=== PATIENT | male | born 1970 | race Caucasian/White ===

== ENCOUNTER 2021-04-09 09:15 | Emergency (ER) | payer BC, SELFPAY ==
[2021-04-09 09:44] VITALS: BP 116/66; PULSE 81; RESP 12; TEMP 36.4; O2SAT 98; BMI 35.5
--- NOTE | 2021-04-09 09:56 | HMH.EDUTC ---
[facility] [place] Clinical Impression: Viral syndrome Disposition: Home, Self-Care Condition on Discharge: Good Instructions: DI for Viral Syndrome Additional Instructions: Drink plenty of fluids. Take tylenol or ibuprofen for pain or fever. Take the medications as directed. Follow up with your regular doctor. GO TO THE ER FOR ANY WORSENING SYMPTOMS Quarantine until you know the results of your covid-19 test. If it is positive, the health department should call you and give you further instructions about your length of Quarantine and other thing. Prescriptions: Benzonatate [Tessalon Perle 100mg Cap] 100 mg PO TIDP PRN #30 cap PRN Reason: Cough Transmission Status: Received by [id number] Azithromycin [Z-Devaughn 250mg Tab*] 250 mg PO UD DOSE PK #6 tab Transmission Status: Received by [id number] Referrals: Shena Lorenz [Primary Care Provider] - Medical Decision Making - Medical Records Medical records reviewed: No: I reviewed the patient's medical records. - Shaquille Inquiry Pt receiving controlled substance: No Vital Signs: 04/09/21 09:44 04/09/21 10:18 Temperature 97.6 F 98 F Temperature Source Temporal Artery Scan Pulse Rate 79 Pulse Rate [Left] 81 Respiratory Rate 12 16 Blood Pressure 121/73 Blood Pressure [Right Arm] 116/66 Blood Pressure Mean [Right Arm] 82 02 Sat by Pulse Oximetry 98 - Lab Data Lab results reviewed: Yes: I reviewed the patient's lab results. Orders (Tests/Meds): ORDERS Category Date Time Status Covid-19 Nasal PCR ([facility]) Routine Lab 04/09/21 09:40 Stop Req Full Resp Panel w/COVID ([facility]) Routine Lab 04/09/21 09:40 Received [facility] HPI - General Stated complaint: covid exposure,symtoms Time Seen by Provider: 04/09/21 09:56 Mode of Arrival: Ambulatory Source of Information: Patient Limitations: No Limitations Description of Symptoms (Recalled from Triage Doc. by RN): pt c/o cough, body aches, DAVIDSON and dizziness. tested positive for covid yesterday. HEENT Symptoms (Recalled from RN notes): Yes (DAVIDSON and dizziness) Resp Symptoms (Recalled from RN notes): Yes (cough) Skin Symptoms (Recalled from RN notes): No MS Symptoms (Recalled from RN notes): No Functional Status (Recalled from RN notes): body aches - History of Present Illness Provider Complaint: He states that for the past 3 days he has had body aches, chilling, low grade fever, a dry cough and a scratchy sore throat. He has been vaccinated against covid (moderna vaccine, last dose around january 25). He denies shortness of breath and chest pain. - Related Data Previous Rx's Medication Instructions Recorded Azithromycin [Z-Devaughn 250mg Tab*] 250 mg PO UD DOSE PK #6 tab 04/09/21 Benzonatate [Tessalon Perle 100mg 100 mg PO TIDP PRN #30 cap 04/09/21 Cap] Allergies Allergy/AdvReac Type Severity Reaction Status Date / Time metformin Allergy Verified 04/09/21 09:46 - Worker's Comp Is this a Worker's Comp case?: No [facility] History - Hepatitis A Screen Drug use history?: No High risk sexual behaviors?: No History of sexually transmitted infection?: No Currently employed?: No Childcare worker?: No Do you have indoor plumbing?: Yes Do you have electricity?: Yes Attestation statement:: This patient has been screened for Hepatitis A risk factors. I have reviewed the patient's past medical history: Yes ROS Obtained: Yes All systems reviewed & no additional complaints - Constitutional Constitutional: Reports chills, Reports fever(s), Reports poor appetite, Reports malaise - Eyes Eyes: Denies eye discharge - ENT Ears, Nose, Mouth, and Throat: Denies dizziness, Denies otalgia, Reports sore throat, Denies vertigo/dizziness - Cardiovascular Cardiovascular: Denies chest pain - Respiratory Respiratory: Reports chest congestion, Reports cough, Denies dyspnea, Denies stridor, Denies wheezing - Gastrointestinal Gastrointestingal: Reports: nausea.
[2021-04-09 10:18] VITALS: BP 121/73; PULSE 79; RESP 16; TEMP 36.6
[2021-04-09 10:20] LABS: Adenovirus,PCR Not Detected (NotDetected); Coronavirus 229E Not Detected (NotDetected); Coronavirus NL63 Not Detected (NotDetected); Coronavirus OC43 Not Detected (NotDetected); Coronovirus HKU1,PCR Not Detected (NotDetected); Human Metapneumovirus Not Detected (NotDetected); Influenza A, PCR Not Detected (NotDetected); Influenza AH1, 2009 Not Detected (NotDetected); Influenza AH1, PCR Not Detected (NotDetected); Influenza AH3,PCR Not Detected (NotDetected); Influenza B, PCR Not Detected (NotDetected); Parainfluenza 1, PCR Not Detected (NotDetected); Parainfluenza 2, PCR Not Detected (NotDetected); Parainfluenza 3, PCR Not Detected (NotDetected); Parainfluenza 4, PCR Not Detected (NotDetected); Respiratory Syncytial Virus Not Detected (NotDetected); Rhinovirus/Enterovirus Not Detected (NotDetected)
[2021-04-09 10:21] LABS: Bordetella Pertussis Not Detected (NotDetected); Chlamydophila Pneumoniae, PCR Not Detected (NotDetected); Mycoplasma Pneumoniae, PCR Not Detected (NotDetected)
[2021-04-09 12:44] LABS: Coronavirus 19, PCR Detected (NotDetected)
== END 2021-04-09 10:20 | disposition home or self-care (01) ==
PROVIDERS: Emergency Provider Nurse Practitioner Family; PCP Family Medicine
DX: U07.1 COVID-19 (principal)
CPT/HCPCS: 87581; 87633; 87798; 99202; G0463; U0003

== ENCOUNTER 2022-04-25 21:04 | Emergency (ER) | payer OTHER, SELFPAY ==
[2022-04-25 21:06] VITALS: BP 145/59; PULSE 109; RESP 16; TEMP 36.9; O2SAT 100; BMI 34.9
[2022-04-25 21:26] VITALS: BP 145/69; PULSE 109; RESP 16; TEMP 36.7; O2SAT 97
--- NOTE | 2022-04-25 21:28 | CT_ITS ---
PROCEDURE INFORMATION: Exam: CT Abdomen And Pelvis Without Contrast Exam date and time: 04/25/2022 9:57 PM Age: 51 years old Clinical indication: Other: Urinary freq. ; Additional info: Urinary pain, frequency TECHNIQUE: Imaging protocol: Computed tomography of the abdomen and pelvis without contrast. Radiation optimization: All CT scans at this facility use at least one of these dose optimization techniques: automated exposure control; mA and/or kV adjustment per patient size (includes targeted exams where dose is matched to clinical indication); or iterative reconstruction. COMPARISON: No relevant prior studies available. FINDINGS: Liver: Parenchymal enhancement is not evaluated without contrast. No hepatomegaly. Gallbladder and bile ducts: No calcified stones. No ductal dilation. Pancreas: Parenchymal enhancement is not evaluated without contrast. No ductal dilation. Spleen: Parenchymal enhancement is not evaluated without contrast. No splenomegaly. Adrenal glands: No mass. Kidneys and ureters: Parenchymal enhancement is not evaluated without contrast. No hydronephrosis. Stomach and bowel: No obstruction. No mucosal thickening. Appendix: No evidence of appendicitis. Intraperitoneal space: No free air. No significant fluid collection. Vasculature: Calcified atherosclerosis. No aneurysm. Lymph nodes: No enlarged lymph nodes. Urinary bladder: Isidro catheter within the urinary bladder. Potential wall thickening of the urinary bladder which is decompressed and not well evaluated. Reproductive: No acute abnormality. Bones/joints: No acute fracture. Soft tissues: 3 cm fat containing right paramedian ventral hernia just below the diaphragm. IMPRESSION: Potential wall thickening of the urinary bladder which is decompressed and not well evaluated. Correlation with UA recommended. Mucosal mass cannot be radiographically excluded.
[2022-04-25 21:30] VITALS: BP 134/63; PULSE 107; RESP 16; O2SAT 97
--- NOTE | 2022-04-25 21:50 | PC.NURSE ---
IN WITH PATIENT, SOARES CATH PLACED PER DR. DIAZ.
[2022-04-25 21:54] LABS: Microscopic, Urine URINE MICROSCOPIC (MICROSCOPIC)
--- NOTE | 2022-04-25 21:58 | HMH.EDUROGM ---
Discharge Plan Disposition Patient Disposition: Home, Self-Care Prescriptions Prescriptions: New levofloxacin 500 mg tablet 500 mg PO DAILY Qty: 7 0RF phenazopyridine [Pyridium] 200 mg tablet 200 mg PO TID Qty: 6 0RF Referrals Follow up/Referrals: Shena Lorenz [Primary Care Provider] - See instructions Tereso Merino MD [Staff Physician] - See instructions Clinical Impressions Clinical Impression: Urinary tract infection Instructions Patient Instructions: DI for Urinary Tract Infection (UTI) Discharge ED Provider: Julio César Rizo Male Urogenital HPI General Chief complaint: Urogenital-Male Stated complaint: blood in urine Time Seen by Provider: 04/25/22 21:58 Mode of Arrival: Ambulatory Source of Information: Patient and Medical Record Limitations: No Limitations Description of Symptoms (Recalled from ER Triage Doc. by RN): PAIN, BURNING AND URINARY FREQUENCY THAT BEGAN TODAY AT 1530. PT ALSO REPORTS DIFFICULTY STARTING HIS FLOW. History of Present Illness HPI Narrative: painful urination with freq and blood which started today - no fever Complaint: dysuria Onset (ago): day(s) Duration: intermittent Severity: moderate Quality: burning Exacerbating factors: urination Reports blood in urine and dysuria Related Data Previous Rx's Medication Instructions Recorded levofloxacin 500 mg tablet 500 mg PO DAILY #7 tabs 04/26/22 phenazopyridine 200 mg tablet 200 mg PO TID 6 doses #6 tabs 04/26/22 (Pyridium) Allergies Allergy/AdvReac Type Severity Reaction Status Date / Time metformin Allergy Verified 04/09/21 09:46 PFSH PFSH Social History Smoking Status: Never smoker alcohol intake: never current occupational status: employed ROS Obtained: Yes All systems reviewed & no additional complaints except as documented Physical Exam General General appearance: alert and obese Head Head exam: normocephalic Eye Eye exam: Present PERRL and EOMI ENT ENT exam: Present mucous membranes moist Neck Neck exam: Present full ROM Respiratory Respiratory exam: Present normal lung sounds bilaterally Cardiovascular Cardiovascular exam: Present regular rate Abdominal Exam Abdominal exam: Present soft; Absent distention or tenderness Abdominal tenderness: Present suprapubic and moderate exam: Present circumcised; Absent urethral discharge or scrotal swelling Extremities Exam Extremities exam: Present full ROM Back Exam Back exam: Absent CVA tenderness (R) or CVA tenderness (L) Neurological Exam Neurological exam: Present alert, oriented X3 and CN II-XII intact Skin Skin exam: Absent rash Medical Decision Making Medical Records Medical records reviewed: Yes I reviewed the patient's medical records. Shaquille Inquiry Pt receiving controlled substance: No Vital Signs: 04/25/22 21:06 04/25/22 23:39 04/25/22 21:26 Temperature 98.5 F 98.7 F 98.1 F Temperature Source Oral Oral Pulse Rate 96 H 109 H Pulse Rate [Left Radial] 109 H Respiratory Rate 16 16 16 Blood Pressure 112/51 L 145/69 H Blood Pressure [Right Arm] 145/59 H Blood Pressure Mean 84 Blood Pressure Mean [Right Arm] 87 Blood Pressure Source Automatic Cuff Blood Pressure Source [Right Arm] Automatic Cuff Blood Pressure Position Supine 02 Sat by Pulse Oximetry 100 99 97 Oxygen Delivery Method Room Air Room Air 04/25/22 21:30 04/25/22 23:37 04/26/22 00:00 Temperature 98.1 F Temperature Source Pulse Rate 107 H 102 H 98 H Pulse Rate [Left Radial] Respiratory Rate 16 16 16 Blood Pressure 134/63 112/51 L 129/68 Blood Pressure [Right Arm] Blood Pressure Mean 86 73 80 Blood Pressure Mean [Right Arm] Blood Pressure Source Blood Pressure Source [Right Arm] Blood Pressure Position 02 Sat by Pulse Oximetry 97 97 97 Oxygen Delivery Method 04/26/22 00:30 04/26/22 01:07 04/26/22 01:07 Temperature 98.9 F Temperature Source Pulse Rate 92 H 86 Pulse Rate
[2022-04-25 22:16] LABS: Chloride 104 mmol/L (98-107); Potassium 3.9 mmoL/L (3.5-5.1); Sodium 138 mmol/L (136-145)
[2022-04-25 22:18] LABS: Blood Urea Nitrogen 10 mg/dl (9-20); Creatinine Clearance Estimated 207 mL/min (50-200); Estimated Glomerular Filt Rate 118 ml/min (>60); GFR (African American) 143 ML/MIN (>60)
[2022-04-25 22:19] LABS: Alanine Aminotransferase 26 U/L (12-78); Albumin Level 3.9 g/dl (3.5-5.0); Albumin/Globulin Ratio 1.3 (1.1-1.8); Alkaline Phosphatase 192 U/L (38-126); Anion Gap 8.9 mEq/L (5-15); Aspartate Amino Transferase 32 U/L (17-59); Calcium 9.4 mg/dl (8.4-10.2); Carbon Dioxide 29 mmol/L (22.0-30.0); Globulin 3.1 g/dL (1.3-3.2); Glucose 199 mg/dl (74-100)
[2022-04-25 22:20] LABS: Lactic Acid 1.9 mmol/L (0.7-2.1)
[2022-04-25 22:23] LABS: Bilirubin,Total < 0.1 mg/dl (0.2-1.3)
[2022-04-25 22:24] LABS: C-Reactive Protein 8.2 mg/L (0-4)
[2022-04-25 22:34] LABS: Appearance,Urine CLOUDY (Clear); Bilirubin,Urine Negative (Negative); Blood, Urine 3+ (Negative); Color,Urine BROWN (Yellow); Glucose,Urine (UA) 1+ (Negative); Ketones,Urine Negative (Negative); Leukocyte Esterase,Urine 1+ (Negative); Nitrate,Urine POSITIVE (Negative); Protein,Urine 3+ (Negative); Specific Gravity, Urine >= 1.030 (1.005-1.030)
[2022-04-25 22:44] LABS: Procalcitonin 0.108 ng/mL (0.0-2.0)
[2022-04-25 22:49] LABS: Basophils # 0.1 K/mm3 (0-0.2); Basophils % 0.5 % (0.1-2.0); Eosinophils # 0.1 K/mm3 (0.0-0.4); Eosinophils % 0.7 % (0.1-12.0); Hematocrit 43.7 % (42.0-52.0); Hemoglobin 14.2 g/dL (14.1-18.0); Lymphocytes # 1.8 K/mm3 (0.7-4.5); Lymphocytes % 15.3 % (10-50); Mean Corpuscular HGB Conc 32.4 g/dL (31.8-35.4); Mean Corpuscular Hemoglobin 30.2 pg (27.0-31.2); Mean Platelet Volume 7.8 fl (7.4-10.4); Monocytes # 0.7 K/mm3 (0.1-1.0); Monocytes % 5.9 % (1.7-9.3); Neutrophils # 8.9 K/mm3 (1.8-7.8); Neutrophils % 77.5 % (37.0-80.0); Platelet Count 310 K/mm3 (142-424); Red Cell Distribution Width 13.6 % (11.5-17.5); White Blood Count 11.5 K/mm3 (4.8-10.8)
[2022-04-25 22:50] LABS: Bacteria,Urine 1+ /lpf; RBC,Urine TNTC #/hpf (0-3); Squamous Epithelial Cell,Urine Occasional #/hpf (0-5)
[2022-04-25 22:58] LABS: Erythrocyte Sedimentation Rate 27 mm/hr (0-20)
[2022-04-25 23:37] VITALS: BP 112/51; PULSE 102; RESP 16; TEMP 36.7; O2SAT 97
[2022-04-25 23:39] VITALS: BP 112/51; PULSE 96; RESP 16; TEMP 37.1; O2SAT 99
--- NOTE | 2022-04-25 23:45 | PC.NURSE ---
ALERT, ORIENTED SKIN WARM AND DRY TO TOUCH, RESP EVEN AND UNLABORED, PATIENT REPORTS URINARY URGENCY IMPROVING. SOARES CATH TO DRAIN WITH SMALL AMOUNT OF YELLOW URINE WITH SMALL BLOOD CLOTS PRESENT.
[2022-04-26] VITALS: BP 129/68; PULSE 98; RESP 16; O2SAT 97
[2022-04-26 00:30] VITALS: BP 125/69; PULSE 92; O2SAT 96
--- NOTE | 2022-04-26 00:45 | PC.NURSE ---
PT ABX COMPLETE- PT AWARE OF WAITING ON DISCHARGE. NO COMPLAINTS VOICED.
--- NOTE | 2022-04-26 01:00 | PC.NURSE ---
F/C REMOVED 300 ML OF URINE OUTPUT. IV D/C
[2022-04-26 01:07] VITALS: BP 144/78; PULSE 86; RESP 16; TEMP 37.2; O2SAT 97
== END 2022-04-26 01:27 | disposition home or self-care (01) ==
PROVIDERS: Emergency Provider Emergency Medicine; PCP Family Medicine
DX: N39.0 Urinary tract infection, site not specified (principal); Z88.8 Allergy status to other drugs, medicaments and biological substances
CPT/HCPCS: 51702; 74176; 80053; 81001; 83605; 84145; 85025; 85651; 86140; 87040; 87086; 87088; 87186; 96365; 96367; 96375; 99284; J0696

== ENCOUNTER → 2022-05-11 14:00 | Outpatient (CLI) | payer OTHER, SELFPAY ==
[2022-05-11 18:19] LABS: Alanine Aminotransferase 21 U/L (12-78); Albumin Level 3.5 g/dl (3.5-5.0); Albumin/Globulin Ratio 1.2 (1.1-1.8); Alkaline Phosphatase 168 U/L (38-126); Anion Gap 13.1 mEq/L (5-15); Aspartate Amino Transferase 23 U/L (17-59); Blood Urea Nitrogen 12 mg/dl (9-20); Calcium 9.1 mg/dl (8.4-10.2); Carbon Dioxide 28 mmol/L (22.0-30.0); Chloride 101 mmol/L (98-107); Cholesterol 149 mg/dl (140-200); Estimated Glomerular Filt Rate 141 ml/min (>60); GFR (African American) 171 ML/MIN (>60); Globulin 2.9 g/dL (1.3-3.2); Glucose 141 mg/dl (74-100); HDL Cholesterol 50 mg/dl (40-60); Potassium 4.1 mmoL/L (3.5-5.1); Sodium 138 mmol/L (136-145); Total Protein,Serum 6.4 g/dl (6.3-8.2); Triglycerides 116 mg/dl (30-150); VLDL Cholesterol 23 mg/dL (0-40)
[2022-05-11 18:21] LABS: Bilirubin,Total < 0.1 mg/dl (0.2-1.3)
[2022-05-11 18:25] LABS: Hemoglobin A1C 6.7 % (4.0-6.0)
[2022-05-11 18:30] LABS: Direct LDL Cholesterol 77.94 mg/dL (100-129)
[2022-05-11 18:35] LABS: 25-OH Vitamin D, Total 20.1 ng/mL (30-100)
[2022-05-11 18:41] LABS: Basophils # 0.1 K/mm3 (0-0.2); Basophils % 1.1 % (0.1-2.0); Eosinophils # 0.1 K/mm3 (0.0-0.4); Eosinophils % 1.1 % (0.1-12.0); Hematocrit 43.8 % (42.0-52.0); Hemoglobin 14.5 g/dL (14.1-18.0); Lymphocytes # 2.5 K/mm3 (0.7-4.5); Mean Corpuscular HGB Conc 33.2 g/dL (31.8-35.4); Mean Corpuscular Volume 93.4 fl (80-94); Mean Platelet Volume 8.3 fl (7.4-10.4); Monocytes # 0.5 K/mm3 (0.1-1.0); Monocytes % 5.8 % (1.7-9.3); Neutrophils # 4.8 K/mm3 (1.8-7.8); Neutrophils % 60.9 % (37.0-80.0); Platelet Count 383 K/mm3 (142-424); Red Blood Count 4.68 M/mm3 (4.60-6.20); Red Cell Distribution Width 13.7 % (11.5-17.5); White Blood Count 7.9 K/mm3 (4.8-10.8)
[2022-05-11 18:50] LABS: Prostate Specific Ag Screen 3.3 ng/ml (0.0-4.0); Thyroid Stimulating Hormone 1.27 uIU/mL (0.465-4.68)
== END ==
PROVIDERS: PCP Physician Assistant; Visit Provider Physician Assistant
DX: E11.9 Type 2 diabetes mellitus without complications (principal); E78.5 Hyperlipidemia, unspecified; I10 Essential (primary) hypertension; R31.9 Hematuria, unspecified; E55.9 Vitamin D deficiency, unspecified; Z12.5 Encounter for screening for malignant neoplasm of prostate; Z79.4 Long term (current) use of insulin
CPT/HCPCS: 80053; 80061; 82306; 83036; 84443; 85025; G0103

== ENCOUNTER → 2022-05-12 14:14 | Outpatient (CLI) | payer OTHER, SELFPAY ==
[2022-05-12 10:41] LABS: Intact Parathyroid Hormone 56.2 pg/mL (7.5-53.5)
== END ==
PROVIDERS: PCP Physician Assistant; Visit Provider Physician Assistant
DX: R74.8 Abnormal levels of other serum enzymes (principal)
CPT/HCPCS: 83970

== ENCOUNTER 2022-06-07 08:19 | Emergency (ER) | payer OTHER, SELFPAY ==
[2022-06-07 08:25] VITALS: BP 131/67; PULSE 80; RESP 22; TEMP 36.4; O2SAT 98; BMI 33.0
[2022-06-07 08:39] VITALS: BP 131/67; PULSE 80; RESP 22; TEMP 36.4; O2SAT 98
--- NOTE | 2022-06-07 08:46 | EXP.UTC ---
Discharge Plan Disposition Patient Disposition: Home, Self-Care Condition: Good Prescriptions Prescriptions: New nystatin 100,000 unit/gram cream 1 applic topical BID 14 Days Qty: 30 1RF fluconazole [Diflucan] 150 mg tablet 150 mg PO ONCE Qty: 1 2RF No Action lisinopril 10 mg tablet 10 mg PO DAILY ezetimibe [Zetia] 10 mg tablet 10 mg PO DAILY pantoprazole 40 mg tablet,delayed release (DR/EC) 40 mg PO DAILY pioglitazone [Actos] 45 mg tablet 45 mg PO DAILY clopidogrel [Plavix] 75 mg tablet 75 mg PO DAILY isosorbide mononitrate 30 mg tablet extended release 24 hr 30 mg PO DAILY Ozempic 1 mg/dose (4 mg/3 mL) pen injector 1 mg SQ WEEKLY sertraline 100 mg tablet 100 mg PO DAILY (DME) FreeStyle Lite Strips Strip See Rx Instructions .ROUTE Rx Instructions: As directed ergocalciferol (vitamin D2) 1,250 mcg (50,000 unit) capsule 1,250 mcg PO WEEKLY Tresiba U-100 Insulin 100 unit/mL solution 20 unit SQ HS cholecalciferol (vitamin D3) 1,250 mcg (50,000 unit) capsule 1,250 mcg PO WEEKLY Qty: 14 3RF Referrals Follow up/Referrals: Jana Tidwell PA [Primary Care Provider] - See instructions Activity Restrictions/Add. Instructions Additional Instructions/Restrictions: Drink plenty of fluids. Take tylenol or ibuprofen for pain or fever. Take the medications as directed. Follow up with your regular doctor. GO TO THE ER FOR ANY WORSENING SYMPTOMS Make sure you dry well after bathing and showering. Pat the affected area under your arm dry with a towel Clinical Impressions Clinical Impression: Candidal skin infection Instructions Patient Instructions: Yeast Infection-Skin Discharge ED Provider: Rudy Curran [facility] General Stated complaint: Rash under LT arm Mode of Arrival: Ambulatory Source of Information: Patient Limitations: No Limitations Time Seen by Provider: 06/07/22 08:50 Description of Symptoms (Recalled from Triage Doc. by RN): PATIENT C/O RASH TO LEFT AXILLA X 1 WEEK HEENT Symptoms (Recalled from RN notes): No Resp Symptoms (Recalled from RN notes): No Skin Symptoms (Recalled from RN notes): Yes MS Symptoms (Recalled from RN notes): No Functional Status (Recalled from RN notes): WNL History of Present Illness Provider Complaint: He states that he has had a rash on his left axilla for the past 2 weeks approx. He denies any rash elsewhere. He has been putting neosporin on it with no improvement. He is a diabetic. Related Data Home Medications Medication Instructions Recorded Confirmed blood sugar diagnostic (FreeStyle 05/11/22 05/11/22 Lite Strips) clopidogrel 75 mg tablet (Plavix) 75 mg PO DAILY 05/11/22 05/11/22 ergocalciferol (vitamin D2) 1,250 1,250 mcg PO WEEKLY 05/11/22 05/11/22 mcg (50,000 unit) capsule ezetimibe 10 mg tablet (Zetia) 10 mg PO DAILY 05/11/22 05/11/22 insulin degludec 100 unit/mL 20 unit SQ HS 05/11/22 05/11/22 subcutaneous solution (Tresiba U-100 Insulin) isosorbide mononitrate 30 mg 30 mg PO DAILY 05/11/22 05/11/22 tablet,extended release 24 hr lisinopril 10 mg tablet 10 mg PO DAILY 05/11/22 05/11/22 pantoprazole 40 mg tablet,delayed 40 mg PO DAILY 05/11/22 05/11/22 release pioglitazone 45 mg tablet (Actos) 45 mg PO DAILY 05/11/22 05/11/22 semaglutide 1 mg/dose (4 mg/3 mL) 1 mg SQ WEEKLY 05/11/22 05/11/22 subcutaneous pen injector (Ozempic) sertraline 100 mg tablet 100 mg PO DAILY 05/11/22 05/11/22 Previous Rx's Medication Instructions Recorded cholecalciferol (vitamin D3) 1,250 1,250 mcg PO WEEKLY #14 caps 05/12/22 mcg (50,000 unit) capsule fluconazole 150 mg tablet 150 mg PO ONCE #1 tab 06/07/22 (Diflucan) nystatin 100,000 unit/gram topical 1 applic topical BID 14 days #30 06/07/22 cream grams Allergies Allergy/AdvReac Type Severity Reaction Status Date / Time metformin Allergy Verified 05/11/22 13:32 Wo
== END 2022-06-07 08:56 | disposition home or self-care (01) ==
PROVIDERS: Emergency Provider Nurse Practitioner Family; PCP Physician Assistant
DX: L08.9 Local infection of the skin and subcutaneous tissue, unspecified (principal); B37.2 Candidiasis of skin and nail; I10 Essential (primary) hypertension; I25.10 Atherosclerotic heart disease of native coronary artery without angina pectoris; E78.5 Hyperlipidemia, unspecified; E11.9 Type 2 diabetes mellitus without complications; F41.9 Anxiety disorder, unspecified; Z79.02 Long term (current) use of antithrombotics/antiplatelets; Z79.4 Long term (current) use of insulin; Z79.51 Long term (current) use of inhaled steroids; Z79.84 Long term (current) use of oral hypoglycemic drugs; Z79.899 Other long term (current) drug therapy
CPT/HCPCS: 99213; G0463

== ENCOUNTER 2023-03-28 13:38 | Emergency (ER) | payer OTHER, SELFPAY ==
--- NOTE | 2023-03-28 13:52 | EXP.UTC ---
Discharge Plan Disposition Patient Disposition: Home, Self-Care Condition: Good Prescriptions Prescriptions: New ondansetron 4 mg Tablet,Disintegrating 4 mg PO Q8H PRN (Reason: Nausea) Qty: 12 0RF No Action clopidogrel [Plavix] 75 mg tablet 75 mg PO DAILY (DME) FreeStyle Lite Strips Strip See Rx Instructions .Route Rx Instructions: As directed metoprolol succinate 50 mg tablet extended release 24 hr 50 mg PO Patient Comments: TAKE 1 TABLET BY MOUTH ONCE DAILY lisinopril 5 mg tablet 5 mg PO Patient Comments: TAKE 1 TABLET BY MOUTH ONCE DAILY ranolazine 500 mg tablet extended release 12 hr 1,000 mg PO BID pioglitazone 30 mg tablet 30 mg PO Patient Comments: TAKE 1 TABLET BY MOUTH ONCE DAILY Ozempic 2 mg/dose (8 mg/3 mL) pen injector 2 mg SQ WEEKLY atorvastatin 80 mg tablet 80 mg PO Patient Comments: TAKE 1 TABLET BY MOUTH ONCE DAILY insulin glargine [Lantus Solostar U-100 Insulin] 100 unit/mL (3 mL) insulin pen 50 unit SQ DAILY Repatha SureClick 140 mg/mL pen injector 140 mg SQ Q2W Patient Comments: INJECT 1 PEN INJECTOR ONCE EVERY 14 DAYS SUBCUTANEOUSLY insulin lispro 100 unit/mL insulin pen 1 sliding scale dose SQ TID Patient Comments: USE DIRECTED UP TO 30 UNITS DAILY IN DIVIDED DOSES DIRECTED aspirin 81 mg tablet,delayed release (DR/EC) 81 mg PO Patient Comments: TAKE 1 TABLET BY MOUTH ONCE DAILY oxybutynin chloride 10 mg tablet extended release 24hr 10 mg PO nitroglycerin 0.4 mg tablet, sublingual 0.4 mg sublingual PRN sertraline 100 mg tablet 100 mg PO DAILY Qty: 90 1RF cholecalciferol (vitamin D3) 1,250 mcg (50,000 unit) capsule 1,250 mcg PO WEEKLY Qty: 14 3RF Referrals Follow up/Referrals: Jana Tidwell PA [Primary Care Provider] - See instructions Activity Restrictions/Add. Instructions Additional Instructions/Restrictions: Drink plenty of fluids. Take tylenol for pain or fever. Take the medications as directed. Follow up with your regular doctor. GO TO THE ER FOR ANY WORSENING SYMPTOMS Clinical Impressions Clinical Impression: Gastroenteritis Instructions Patient Instructions: DI for Viral Gastroenteritis -- Adult, Ondansetron Discharge ED Provider: Rudy Curran [facility] HPI General Stated complaint: vomiting, body aches Time Seen by Provider: 03/28/23 13:52 History of Present Illness Provider Complaint: He states that for the past 2 days he has had n/v/d. He denies any abdominal pain. He states that he has not vomited since yesterday, but he has continued to have diarrhea. Related Data Home Medications Medication Instructions Recorded Confirmed blood sugar diagnostic (FreeStyle 05/11/22 03/20/23 Lite Strips) clopidogrel 75 mg tablet (Plavix) 75 mg PO DAILY 05/11/22 03/20/23 aspirin 81 mg tablet,delayed 81 mg PO 02/19/23 03/20/23 release atorvastatin 80 mg tablet 80 mg PO 02/19/23 03/20/23 evolocumab 140 mg/mL subcutaneous 140 mg SQ Q2W 02/19/23 03/20/23 pen injector (Repatha SureClick) insulin glargine 100 unit/mL (3 50 unit SQ DAILY 02/19/23 03/20/23 mL) subcutaneous pen (Lantus Solostar U-100 Insulin) insulin lispro 100 unit/mL 1 sliding scale dose SQ TID 02/19/23 03/20/23 subcutaneous pen lisinopril 5 mg tablet 5 mg PO 02/19/23 03/20/23 metoprolol succinate 50 mg 50 mg PO 02/19/23 03/20/23 tablet,extended release 24 hr nitroglycerin 0.4 mg sublingual 0.4 mg sublingual PRN 02/19/23 03/20/23 tablet oxybutynin chloride 10 mg 10 mg PO 02/19/23 03/20/23 tablet,extended release 24 hr pioglitazone 30 mg tablet 30 mg PO 02/19/23 03/20/23 ranolazine 500 mg tablet,extended 1,000 mg PO BID 02/19/23 03/20/23 release,12 hr semaglutide 2 mg/dose (8 mg/3 mL) 2 mg SQ WEEKLY 02/19/23 03/20/23 subcutaneous pen injector (Ozempic) Previous Rx's Medication Instruc
[2023-03-28 13:56] VITALS: BP 127/65; PULSE 91; RESP 18; TEMP 36.8; O2SAT 98; BMI 38.2
[2023-03-28 14:38] VITALS: BP 127/65; PULSE 91; RESP 18; TEMP 36.8
== END 2023-03-28 14:39 | disposition home or self-care (01) ==
PROVIDERS: Emergency Provider Nurse Practitioner Family; PCP Physician Assistant
DX: K52.9 Noninfective gastroenteritis and colitis, unspecified (principal); R11.2 Nausea with vomiting, unspecified; E11.9 Type 2 diabetes mellitus without complications; E78.5 Hyperlipidemia, unspecified; I10 Essential (primary) hypertension; F41.9 Anxiety disorder, unspecified; F32.A Depression, unspecified; Z79.4 Long term (current) use of insulin
CPT/HCPCS: 99212; 99214; G0463

== ENCOUNTER → 2023-06-13 16:14 | Outpatient (CLI) | payer OTHER, SELFPAY ==
[2023-06-13 18:34] LABS: 25-OH Vitamin D, Total 26.9 ng/mL (30-100)
[2023-06-13 19:00] LABS: Alanine Aminotransferase 23 U/L (12-78); Albumin Level 3.8 g/dl (3.5-5.0); Albumin/Globulin Ratio 1.4 (1.1-1.8); Alkaline Phosphatase 150 U/L (38-126); Anion Gap 14.1 mEq/L (5-15); Aspartate Amino Transferase 25 U/L (17-59); Bilirubin,Total 0.3 mg/dl (0.2-1.3); Blood Urea Nitrogen 14 mg/dl (9-20); Calcium 9.4 mg/dl (8.4-10.2); Carbon Dioxide 27 mmol/L (22.0-30.0); Chloride 103 mmol/L (98-107); Chol/HDL Ratio 1.4 (1-3.5); Cholesterol 83 mg/dl (140-200); Estimated Glomerular Filt Rate 101 ml/min (>60); GFR (African American) 122 ML/MIN (>60); Globulin 2.7 g/dL (1.3-3.2); Glucose 85 mg/dl (74-100); HDL Cholesterol 58 mg/dl (40-60); Potassium 4.1 mmoL/L (3.5-5.1); Sodium 140 mmol/L (136-145); Total Protein,Serum 6.5 g/dl (6.3-8.2); Triglycerides 49 mg/dl (30-150); VLDL Cholesterol 10 mg/dL (0-40)
[2023-06-13 19:36] LABS: Hemoglobin A1C 6.4 % (4.0-6.0)
[2023-06-13 19:37] LABS: Direct LDL Cholesterol < 30.00 mg/dL (100-129)
== END ==
PROVIDERS: PCP Physician Assistant
DX: E11.59 Type 2 diabetes mellitus with other circulatory complications (principal); E11.65 Type 2 diabetes mellitus with hyperglycemia; E11.69 Type 2 diabetes mellitus with other specified complication; I15.2 Hypertension secondary to endocrine disorders; I25.10 Atherosclerotic heart disease of native coronary artery without angina pectoris; E55.9 Vitamin D deficiency, unspecified; E78.5 Hyperlipidemia, unspecified; E66.01 Morbid (severe) obesity due to excess calories; Z68.37 Body mass index [BMI] 37.0-37.9, adult; Z79.4 Long term (current) use of insulin
CPT/HCPCS: 36415; 80053; 80061; 82306; 83036

== ENCOUNTER 2023-06-27 11:40 | Emergency (ER) | payer OTHER, SELFPAY ==
[2023-06-27 12:05] VITALS: BP 116/68; PULSE 71; RESP 17; TEMP 36.6; O2SAT 98; BMI 38.1
--- NOTE | 2023-06-27 12:18 | EXP.UTC ---
Discharge Plan Disposition Patient Disposition: Home, Self-Care Condition: Good Prescriptions Prescriptions: New benzonatate 100 mg capsule 100 mg PO TID PRN (Reason: cough) Qty: 30 0RF amoxicillin-pot clavulanate 875-125 mg Tablet 1 tab PO Q12H Qty: 20 0RF No Action clopidogrel [Plavix] 75 mg tablet 75 mg PO DAILY (DME) FreeStyle Lite Strips Strip See Rx Instructions .Route Rx Instructions: As directed metoprolol succinate 50 mg tablet extended release 24 hr 50 mg PO Patient Comments: TAKE 1 TABLET BY MOUTH ONCE DAILY lisinopril 5 mg tablet 5 mg PO Patient Comments: TAKE 1 TABLET BY MOUTH ONCE DAILY ranolazine 500 mg tablet extended release 12 hr 1,000 mg PO BID pioglitazone 30 mg tablet 30 mg PO Patient Comments: TAKE 1 TABLET BY MOUTH ONCE DAILY Ozempic 2 mg/dose (8 mg/3 mL) pen injector 2 mg SQ WEEKLY atorvastatin 80 mg tablet 80 mg PO Patient Comments: TAKE 1 TABLET BY MOUTH ONCE DAILY insulin glargine [Lantus Solostar U-100 Insulin] 100 unit/mL (3 mL) insulin pen 50 unit SQ DAILY Repatha SureClick 140 mg/mL pen injector 140 mg SQ Q2W Patient Comments: INJECT 1 PEN INJECTOR ONCE EVERY 14 DAYS SUBCUTANEOUSLY insulin lispro 100 unit/mL insulin pen 1 sliding scale dose SQ TID Patient Comments: USE DIRECTED UP TO 30 UNITS DAILY IN DIVIDED DOSES DIRECTED aspirin 81 mg tablet,delayed release (DR/EC) 81 mg PO Patient Comments: TAKE 1 TABLET BY MOUTH ONCE DAILY oxybutynin chloride 10 mg tablet extended release 24hr 10 mg PO nitroglycerin 0.4 mg tablet, sublingual 0.4 mg sublingual PRN sertraline 100 mg tablet 100 mg PO DAILY Qty: 90 1RF cholecalciferol (vitamin D3) 1,250 mcg (50,000 unit) capsule 1,250 mcg PO WEEKLY Qty: 14 3RF ondansetron 4 mg Tablet,Disintegrating 4 mg PO Q8H PRN (Reason: Nausea) Qty: 12 0RF Referrals Follow up/Referrals: Jana Tidwell PA [Primary Care Provider] - See instructions Activity Restrictions/Add. Instructions Additional Instructions/Restrictions: *Monitor Temp, Over the counter Motrin or Tylenol as directed/as needed Tylenol every 4 hours and Motrin every 6 hours (as long as your family doctor has told you that you can take it) for fever or pain. and straight to ER if unable to lower temp less than 101.0 after medication given *Warm salt water gargles may help to soothe the throat *Throat Lozenges? *Warm fluids like tea with honey may help to soothe the throat? *Sleep elevated *Humidifier/Vaporizer Your throat swab was sent for culture. Those results are typically sent to your primary care. Be sure to follow up in 2-3 days with your family doctor/primary care physician if no improvement so they can review those result and treat if necessary. If you don?t have a primary care doctor, I recommend you get one but in the mean time, you will have to return to a walk in clinic Follow up IMMEDIATELY for new or worsening symptoms or no Noticeable improvement over the next 48-72 hours. 911 for difficulty breathing or swallowing Clinical Impressions Clinical Impression: Sinusitis Qualifiers: Sinusitis location: unspecified location Chronicity: unspecified Qualified Code(s): J32.9 - Chronic sinusitis, unspecified Instructions Patient Instructions: DI for Sinusitis, Sinusitis, Middle Ear Infection Discharge ED Provider: Belia Rausch [facility] General Stated complaint: cough, congestion, weakness, lossof taste and smel Mode of Arrival: Ambulatory Source of Information: Patient Limitations: No Limitations Time Seen by Provider: 06/27/23 12:18 Description of Symptoms (Recalled from Triage Doc. by RN): PATIENT C/O BODY ACHES, EAR PAIN AND SORE THROAT X 3 DAYS HEENT Symptoms (Recalled from RN notes): Yes Resp Symptoms (Recalled from RN notes): No Ski
[2023-06-27 12:40] LABS: UTC Strep Screen (Rapid) Negative (Negative)
[2023-06-27 12:41] LABS: UTC Influenza A Antigen Negative (Negative); UTC Influenza B Antigen Negative (Negative)
[2023-06-27 12:45] VITALS: BP 116/68; PULSE 71; RESP 17; TEMP 36.6; O2SAT 98
== END 2023-06-27 12:50 | disposition home or self-care (01) ==
PROVIDERS: Emergency Provider Nurse Practitioner; PCP Physician Assistant
DX: J01.90 Acute sinusitis, unspecified (principal); H66.92 Otitis media, unspecified, left ear; R43.9 Unspecified disturbances of smell and taste; E11.9 Type 2 diabetes mellitus without complications; I10 Essential (primary) hypertension; E78.5 Hyperlipidemia, unspecified; I48.0 Paroxysmal atrial fibrillation; Z79.01 Long term (current) use of anticoagulants; Z79.4 Long term (current) use of insulin
CPT/HCPCS: 87635; 87804; 87880; 99212; 99214; G0463

== ENCOUNTER 2023-07-24 15:15 | Emergency (ER) | payer OTHER, SELFPAY ==
[2023-07-24 15:55] VITALS: BP 145/71; PULSE 85; RESP 18; TEMP 36.5; O2SAT 97; BMI 38.0
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
[2023-07-24 16:35] VITALS: BP 145/71; PULSE 85; RESP 18; TEMP 36.5; O2SAT 97
== END 2023-07-24 16:35 | disposition home or self-care (01) ==
LOC: UTC 15:20 → ER 15:26
PROVIDERS: Emergency Provider Emergency Medicine; PCP Physician Assistant
DX: T21.22XA Burn of second degree of abdominal wall, initial encounter (principal); T21.12XA Burn of first degree of abdominal wall, initial encounter; I48.0 Paroxysmal atrial fibrillation; E11.9 Type 2 diabetes mellitus without complications; I10 Essential (primary) hypertension; E78.5 Hyperlipidemia, unspecified; Z79.4 Long term (current) use of insulin; Z79.84 Long term (current) use of oral hypoglycemic drugs; Z79.85 Long-term (current) use of injectable non-insulin antidiabetic drugs; X13.1XXA Other contact with steam and other hot vapors, initial encounter; Z23 Encounter for immunization
CPT/HCPCS: 90471; 90715; 99283

== ENCOUNTER 2024-02-16 09:43 | Emergency (ER) | payer MEDICARE, SELFPAY ==
[2024-02-16 09:45] VITALS: BP 137/61; PULSE 90; RESP 18; TEMP 36.6; O2SAT 99; BMI 37.1
--- NOTE | 2024-02-16 10:15 | EXP.UTC ---
Discharge Plan Disposition Patient Disposition: Home, Self-Care Condition: Good Prescriptions Prescriptions: New clotrimazole 1 % cream 1 applic topical BID 14 Days Qty: 30 0RF No Action clopidogrel [Plavix] 75 mg tablet 75 mg PO DAILY (DME) FreeStyle Lite Strips Strip See Rx Instructions .Route Rx Instructions: As directed ezetimibe 10 mg tablet PO (DME) lancets [FreeStyle Lancets] 28 gauge misc See Rx Instructions .ROUTE .MEDSUPPLY Qty: 100 Patient Comments: USE TO TEST BLOOD SUGAR 3 TIMES DAILY Rx Instructions: As directed (DME) blood-glucose meter [FreeStyle Lite Meter] Kit See Rx Instructions .ROUTE .MEDSUPPLY Qty: 1 Rx Instructions: As directed metoprolol succinate 50 mg tablet extended release 24 hr 50 mg PO Patient Comments: TAKE 1 TABLET BY MOUTH ONCE DAILY lisinopril 5 mg tablet 5 mg PO Patient Comments: TAKE 1 TABLET BY MOUTH ONCE DAILY pioglitazone 30 mg tablet 30 mg PO Patient Comments: TAKE 1 TABLET BY MOUTH ONCE DAILY Ozempic 2 mg/dose (8 mg/3 mL) pen injector 2 mg SQ WEEKLY atorvastatin 80 mg tablet 80 mg PO Patient Comments: TAKE 1 TABLET BY MOUTH ONCE DAILY insulin glargine [Lantus Solostar U-100 Insulin] 100 unit/mL (3 mL) insulin pen 50 unit SQ DAILY Repatha SureClick 140 mg/mL pen injector 140 mg SQ Q2W Patient Comments: INJECT 1 PEN INJECTOR ONCE EVERY 14 DAYS SUBCUTANEOUSLY insulin lispro 100 unit/mL insulin pen 1 sliding scale dose SQ TID Patient Comments: USE DIRECTED UP TO 30 UNITS DAILY IN DIVIDED DOSES DIRECTED aspirin 81 mg tablet,delayed release (DR/EC) 81 mg PO Patient Comments: TAKE 1 TABLET BY MOUTH ONCE DAILY oxybutynin chloride 10 mg tablet extended release 24hr 10 mg PO nitroglycerin 0.4 mg tablet, sublingual 0.4 mg sublingual PRN ergocalciferol (vitamin D2) 1,250 mcg (50,000 unit) capsule PO Patient Comments: TAKE 2 CAPSULES BY MOUTH ONCE A WEEK ranolazine 1,000 mg tablet extended release 12 hr PO Patient Comments: TAKE 1/2 (ONE-HALF) BY MOUTH TWICE DAILY sertraline 100 mg tablet See Rx Instructions .ROUTE .COMPLEX Qty: 90 0RF Dose Instruction: Take 1 tablet by mouth once daily Rx Instructions: Take 1 tablet by mouth once daily Referrals Follow up/Referrals: Jana Tidwell PA [Primary Care Provider] - See instructions Activity Restrictions/Add. Instructions Additional Instructions/Restrictions: Wash and dry penis thoroughly prior to application of medication. If symptoms persist or worsen, return to clinic or go to primary care provider. Clinical Impressions Clinical Impression: [place] infection of genital region Instructions Patient Instructions: DI for Yeast Infection-Skin Discharge ED Provider: Jannette Yung [facility] HPI General Stated complaint: pain, possible uti Mode of Arrival: Ambulatory Source of Information: Patient Limitations: No Limitations Time Seen by Provider: 02/16/24 10:15 Description of Symptoms (Recalled from Triage Doc. by RN): PT REPORT INFECTION WHITE SPOTS UNDER PENIS HEENT Symptoms (Recalled from RN notes): No Resp Symptoms (Recalled from RN notes): No Skin Symptoms (Recalled from RN notes): Yes MS Symptoms (Recalled from RN notes): No Functional Status (Recalled from RN notes): NA History of Present Illness Provider Complaint: Pt reports that he has diabetes and will get a yeast infection from time to time. He reports that he has white around the underscore of the head of his penis and it itches. Related Data Home Medications Medication Instructions Recorded Confirmed blood sugar diagnostic (FreeStyle 05/11/22 01/16/24 Lite Strips) clopidogrel 75 mg tablet (Plavix) 75 mg PO DAILY 05/11/22 01/16/24 aspirin 81 mg tablet,delayed 81 mg PO 02/19/23 01/16/24 release atorvastatin 80 mg tablet 80 mg PO 02/19/23 01/16/24 evolocumab 140 mg/mL subcutaneous 140 mg SQ Q2W 02/19/23 01/16/24 pen injector (Repatha SureClick) insulin glargine 100 unit/mL (3 50 unit SQ DAILY 02/19/23 01/16/24 mL) subcutaneous pen (Lantus Solostar U-100 Insulin) insulin lispro 100 unit/mL 1 sliding scale dose SQ TID 02/19/23 01/16/24 subcutaneous pen lisinopril 5 mg tablet 5 mg PO 02/19/23 01/16/24 metoprolol succinate 50 mg 50 mg PO 02/19/23 01/16/24 tablet,extended release 24 hr nitroglycerin 0.4 mg sublingual 0.4 mg sublingual PRN 02/19/23 01/16/24 tablet oxybutynin chloride 10 mg 10 mg PO 02/19/23 01/16/24 tablet,extended release 24 hr pioglitazone 30 mg tablet 30 mg PO 02/19/23 01/16/24 semaglutide 2 mg/dose (8 mg/3 mL) 2 mg SQ WEEKLY 02/19/23 01/16/24 subcutaneous pen injector (Ozempic) blood-glucose meter (FreeStyle #1 ea 07/04/23 01/16/24 Lite Meter kit) ezetimibe 10 mg tablet mg PO 07/04/23 01/16/24 lancets 28 gauge (FreeStyle #100 ea 07/04/23 01/16/24 Lancets) ergocalciferol (vitamin D2) 1,250 PO 01/16/24 01/16/24 mcg (50,000 unit) capsule ranolazine 1,000 mg mg PO 01/16/24 01/16/24 tablet,extended release,12 hr Previous Rx's Medication Instructions Recorded sertraline 100 mg tablet See Rx Instructions .Route 11/13/23 .COMPLEX #90 tabs clotrimazole 1 % topical cream 1 applic topical BID 2 weeks #30 02/16/24 grams Allergies Allergy/AdvReac Type Severity Reaction Status Date / Time metformin Allergy Severe Bleeding Verified 01/16/24 10:00 Worker's Comp Is this a Worker's Comp case?: No [facility] Disclaimer: The information contained in this section may have been updated after the patient was seen, as this information can be updated by other users. Medical History Depression Anxiety Diabetes mellitus, type 2 Atrial fibrillation Hyperlipidemia Hypertension History of heart attack Surgical History History of open heart surgery History of cardiac catheterization Social History Smoking Status: Never smoker alcohol intake: never current occupational status: employed Travel in the last 8 weeks: None ROS Obtained: Yes All systems reviewed & no additional complaints except as documented Constitutional Constitutional: Reports system reviewed and no additional complaints, except as documented Eyes Eyes: Reports system reviewed and no additional complaints, except as documented ENT Ears, Nose, Mouth, and Throat: Reports system reviewed and no additional complaints, except as documented Cardiovascular Cardiovascular: Reports system reviewed and no additional complaints, except as documented Respiratory Respiratory: Reports system reviewed and no additional complaints, except as documented Gastrointestinal Gastrointestingal: Reports system reviewed and no additional complaints, except as documented Genitourinary Male Genitourinary: Reports system reviewed and no additional complaints, except as documented and Reports as per HPI Musculoskeletal Musculoskeletal: Reports system reviewed and no additional complaints, except as documented Integumentary/Breasts Skin/Breast: Reports system reviewed and no additional complaints, except as documented, Reports redness, Reports pruritus and Reports rash Neurologic Neurologic: Reports system reviewed and no additional complaints, except as documented Endocrine Endocrine: Reports system reviewed and no additional complaints, except as documented Hematologic/Lymphatic Henatologic/Lymphatic: Reports system reviewed and no additional complaints, except as documented Allergic/Immunologic Allergic/Immunologic: Reports system reviewed and no additional complaints, except as documented Physical Exam General General appearance: alert and in no apparent distress Head Head exam: atraumatic and normocephalic Eye Eye exam: Present normal appearance ENT ENT exam: Present normal exam and normal oropharynx Neck Neck exam: Present normal inspection Chest Chest inspection: Present normal inspection and symmetric chest wall rise Respiratory Respiratory exam: Present normal lung sounds bilaterally Cardiovascular Cardiovascular exam: Present regular rate, normal rhythm and normal heart sounds Abdominal Exam Abdominal exam: Present soft and normal bowel sounds Expanded Exam exam: Present erythema Extremities Exam Extremities exam: Present normal inspection Back Exam Back exam: Present normal inspection Neurological Exam Neurological exam: Present alert and oriented X3 Psychiatric Psychiatric exam: Present normal affect and normal mood Skin Skin exam: Present rash Expanded Skin Exam Distribution: genitals Description: Present erythematous Comment: yeast noted around head of penis Medical Decision Making [place] Inquiry Pt receiving controlled substance: No [place] was queried for this patient: No Vital Signs: 02/16/24 09:45 Temperature 97.8 F Temperature Source Oral Pulse Rate [Radial] 90 Respiratory Rate 18 Blood Pressure [Left Arm] 137/61 Blood Pressure Mean [Left Arm] 86 Blood Pressure Source [Left Arm] Automatic Cuff Blood Pressure Position [Left Arm] Sitting 02 Sat by Pulse Oximetry 99 Oxygen Delivery Method Room Air Lab Data Lab results reviewed: Yes I reviewed the patient's lab results.
[2024-02-16 10:26] VITALS: BP 137/61; PULSE 90; RESP 18; TEMP 36.6; O2SAT 99
[2024-02-16 10:38] LABS: Apearance,Urine Clear (Clear); Color,Urine Yellow (Yellow); PH,Urine 5.5 (5.0-8.5)
[2024-02-16 10:39] LABS: Glucose,Urine (UA) 1+ (Negative); Protein,Urine Negative (Negative); Specific Gravity, Urine 1.015 (1.005-1.030)
[2024-02-16 10:40] LABS: Bilirubin,Urine Negative (Negative); Blood, Urine Negative (Negative); Ketones,Urine Negative (Negative); Urobilinogen,Urine 0.2 EU/dl (0.2)
[2024-02-16 10:41] LABS: UTC Leukocyte Esterase,Urine Negative (Negative); UTC Nitrate,Urine Negative (Negative)
== END 2024-02-16 10:27 | disposition home or self-care (01) ==
PROVIDERS: Emergency Provider Nurse Practitioner Family; PCP Physician Assistant
DX: B37.49 Other urogenital candidiasis (principal); E11.9 Type 2 diabetes mellitus without complications; Z79.4 Long term (current) use of insulin; Z79.84 Long term (current) use of oral hypoglycemic drugs; Z79.85 Long-term (current) use of injectable non-insulin antidiabetic drugs
CPT/HCPCS: 81003; 99212; 99214; G0463

== ENCOUNTER 2024-03-19 10:06 | Outpatient (CLI) | payer MEDICARE, SELFPAY ==
[2024-03-19 18:37] LABS: Microscopic, Urine URINE MICROSCOPIC (MICROSCOPIC)
[2024-03-19 19:01] LABS: Appearance,Urine CLEAR (Clear); Bilirubin,Urine Negative (Negative); Blood, Urine Negative (Negative); Color,Urine YELLOW (Yellow); Glucose,Urine (UA) 3+ (Negative); Ketones,Urine Negative (Negative); Leukocyte Esterase,Urine Negative (Negative); Nitrate,Urine Negative (Negative); Protein,Urine Negative (Negative); Urobilinogen,Urine 0.2 EU/dl (0.2)
[2024-03-19 19:07] LABS: Basophils # 0.1 K/mm3 (0-0.2); Basophils % 0.8 % (0.1-2.0); Eosinophils # 0.1 K/mm3 (0.0-0.4); Eosinophils % 0.7 % (0.1-12.0); Hematocrit 48.1 % (42.0-52.0); Hemoglobin 15.7 g/dL (14.1-18.0); Lymphocytes # 2.8 K/mm3 (0.7-4.5); Lymphocytes % 31.2 % (10-50); Mean Corpuscular HGB Conc 32.7 g/dL (31.8-35.4); Mean Corpuscular Hemoglobin 31.9 pg (27.0-31.2); Mean Corpuscular Volume 97.5 fl (80-94); Mean Platelet Volume 7.9 fl (7.4-10.4); Monocytes # 0.5 K/mm3 (0.1-1.0); Neutrophils # 5.6 K/mm3 (1.8-7.8); Neutrophils % 62.3 % (37.0-80.0); Platelet Count 359 K/mm3 (142-424); Red Blood Count 4.93 M/mm3 (4.60-6.20); Red Cell Distribution Width 14.2 % (11.5-17.5); White Blood Count 9.1 K/mm3 (4.8-10.8)
[2024-03-19 19:12] LABS: Alanine Aminotransferase 34 U/L (12-78); Albumin Level 3.7 g/dl (3.5-5.0); Albumin/Globulin Ratio 1.3 (1.1-1.8); Alkaline Phosphatase 181 U/L (38-126); Anion Gap 11.3 mEq/L (5-15); Aspartate Amino Transferase 29 U/L (17-59); Bilirubin,Total 0.5 mg/dl (0.2-1.3); Blood Urea Nitrogen 12 mg/dl (9-20); Calcium 9.7 mg/dl (8.4-10.2); Carbon Dioxide 26 mmol/L (22.0-30.0); Chloride 108 mmol/L (98-107); Chol/HDL Ratio 1.4 (1-3.5); Cholesterol 75 mg/dl (140-200); Estimated Glomerular Filt Rate 117 ml/min (>60); GFR (African American) 142 ML/MIN (>60); Globulin 2.9 g/dL (1.3-3.2); Glucose 131 mg/dl (74-100); HDL Cholesterol 55 mg/dl (40-60); Potassium 4.3 mmoL/L (3.5-5.1); Sodium 141 mmol/L (136-145); Total Protein,Serum 6.6 g/dl (6.3-8.2); Triglycerides 80 mg/dl (30-150); VLDL Cholesterol 16 mg/dL (0-40)
[2024-03-19 19:14] LABS: Hemoglobin A1C 6.5 % (4.0-6.0)
[2024-03-19 19:14] LABS: Creatinine,Urine Random 107 mg/dL (Not Estab.)
[2024-03-19 19:19] LABS: Microalbumin/Creatinine Ratio 20.4
[2024-03-19 19:27] LABS: Direct LDL Cholesterol < 30.00 mg/dL (100-129)
[2024-03-19 19:28] LABS: Bacteria,Urine Trace /lpf
[2024-03-19 19:29] LABS: 25-OH Vitamin D, Total 54.2 ng/mL (30-100)
[2024-03-19 19:44] LABS: Prostate Specific Ag Screen 1.9 ng/ml (0.0-4.0); Thyroid Stimulating Hormone 1.86 uIU/mL (0.465-4.68)
[2024-03-22 04:48] LABS: Neisseria gonorrhoeae, NAA Negative (Negative)
== END 2024-03-19 23:59 | disposition home or self-care (01) ==
LOC: LAB.DROPOF 03-20 10:06
PROVIDERS: PCP Family Medicine; Visit Provider Family Medicine
DX: E11.69 Type 2 diabetes mellitus with other specified complication (principal); Z79.4 Long term (current) use of insulin; R30.9 Painful micturition, unspecified; Z12.5 Encounter for screening for malignant neoplasm of prostate; E07.9 Disorder of thyroid, unspecified; E11.9 Type 2 diabetes mellitus without complications; E55.9 Vitamin D deficiency, unspecified; N39.0 Urinary tract infection, site not specified; E78.5 Hyperlipidemia, unspecified
CPT/HCPCS: 80050; 80053; 80061; 81001; 82043; 82306; 82570; 83036; 84443; 85025; 87086; 87088; 87186; 87491; 87591; G0103

== ENCOUNTER 2024-06-18 13:10 | Outpatient (CLI) | payer MEDICARE, SELFPAY ==
[2024-06-18 18:51] LABS: Hemoglobin A1C 6.4 % (4.0-6.0)
[2024-06-18 19:30] LABS: HIV (1&2) Antibody Rapid NONREACTIVE (NONREACTIVE)
[2024-06-20 05:56] LABS: HCV Ab Non Reactive (Non Reactive)
== END 2024-06-18 23:59 | disposition home or self-care (01) ==
LOC: LAB.DROPOF 06-19 13:11
PROVIDERS: PCP Family Medicine; Visit Provider Family Medicine
DX: Z11.4 Encounter for screening for human immunodeficiency virus [HIV] (principal); E11.9 Type 2 diabetes mellitus without complications
CPT/HCPCS: 83036; 86803; 87389

== ENCOUNTER 2024-06-19 13:38 | Outpatient (CLI) | payer MEDICARE, SELFPAY | END 2024-06-19 23:59 | disposition home or self-care (01) | LOC: LAB.DROPOF 13:38 | PROVIDERS: PCP Family Medicine; Visit Provider Family Medicine | DX: B37.49 Other urogenital candidiasis (principal) | CPT/HCPCS: 87210 ==

== ENCOUNTER 2025-06-23 14:22 | Outpatient (CLI) | payer MEDICARE, SELFPAY ==
--- OUTSIDE RECORDS SUMMARY | 2023-01-29 10:10 | XMS_ITS | Encounter Summary ---
Author Organization [facility] Address [facility] [place] [address] Care Team Providers Care Window [employer]ade Cl[employer] Sewer Name Role Phone Artem Hi MD Primary Care Provider [phone] Encounter Details Date Type Department Care Team (Latest Contact Info) Description 01/29/2023 10:10 AM EDT Hospital Encounter [facility] [address] [place] [id number] Left without seen Social History Tobacco Use Types Packs/Day Years Used Date Smoking Tobacco: Former Cigarettes 1 28.2 0 08/27/1982 - 11/26/2010 Smokeless Tobacco: Never Alcohol Use Standard Drinks/Week Comments No 0 (1 standard drink = 0.6 oz pur e alcohol) denies Overall Financial Resource Strain (CARDIA) Answe r Date Recorded How hard is it for you to pa y for the very basics like food, housing, medical care, and heating? Not very hard 08/02/2021 PHQ-2 Answer Date Recorded PHQ-2 Total Score 0 03/07/2021 [facility] - Occupational Stress Questionnaire Answer Date Recorded Do you feel stress - tense, restless, nervous, or anxious, or unable to sleep at night because your mind is troubled all the time - these days? Rather much 08/02/2021 Exercise Vital Sign Answer Date Recorde d On average, how many days pe r week do you engage in moderate to strenuous exercise (like a brisk walk)? 5 days 08/02/2021 On average, how many minutes do you engage in exercise at this level? 10 min 08/02/2021 Hunger Vital Sign Answer Date Recorded Within the past 12 months, y ou worried that your food would run out before you got the money to buy more. Never true 08/02/20 21 Within the past 12 months, t he food you bought just didn't last and you didn't have money to get more. Never true 08/02/2021 PRAPARE - Transportation Answer Date Re corded In the past 12 months, has l ack of transportation kept you from medical appointments or from getting medications? No 02/2021 In the past 12 months, has l ack of transportation kept you from meetings, work, or from getting things needed for daily living? 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 No / Unsure 03/06/2023 1:03 PM EDT documented as of this encounter Functional Status * Is the person deaf or does he/she have serious difficulty hearing? Answer Date of Assessment Author No 09/17/2018 9:34 AM Skye Boss RN * Is the person blind or does he/she have serious difficulty seeing even when wearing glasses? Answer Date of Assessment Author No 09/17/2018 9:34 AM Skey Boss RN * Does this person have serious difficulty walking or climbing stairs? Answer Date of Assessment Author No 09/17/2018 9:34 AM Skye Boss RN * Does this person have difficulty dressing or bathing? Answer Date of Assessment Author No 09/17/2018 9:34 AM Skye Boss RN * Because of a physical, mental or emotional condition, does this person have difficulty doing errands alone such as visiting a doctor's office or shopping? Answer Date of Assessment Author No 09/17/2018 9:34 AM Skye Boss RN documented as of this encounter Mental Status * Because of a physical, mental or emotional condition, does this person have serious difficulty concentrating, remembering or making decisions? Answer Entry Date Author No 09/17/2018 9:34 AM Skye Boss RN documented in this encounter Plan of Treatment Upcoming Encounters Date Type Department Care Team (Late st Contact Info) Description 10/30/2025 12:40 PM EST Office Visit [facility] [address] [place] [id number] Edwardo Urbano APRN [address] [place] [address] [place] [address] 10/30/2025 1:30 PM EST Office Visit [facility] [place] [id number] Rayne Trimble APRN [address] [id number] documented as of this encounter Goals Goal Patient Goal Type Associated Problems Recent Progress Patient-Stated? Author Blood Pressure < 140/90 Blood Pressure 106/56(05/07 1:00 PM EDT) No Trudy Lewis RMA BMI (Calculated) < 30 General 37.6( 025 1:00 PM EDT) No Trudy Lewis RMA Eat better, exercise, reach an ideal body weight General No Pao Daigle APRN Patient will check blood sugar twice daily and record General On track(2021 4:13 PM EST) No Laura Wells RN Patient will be able to afford medications General Not on track(2021 4:13 PM EST) No Laura Wells RN Note: 08/16 patient unable to afford Jardiance. Patient uninsured at this time. RN CC provided patient with contact to assist with Medicaid. Stay Tobacco Free Lifestyle No Pao Daigle APRN Check fasting glucose daily and document Lifestyle On track(2020 10:43 AM EDT) No Tawanna Arroyo RN HEMOGLOBIN A1C < 7.0 Result Component 6(05/01/2025 1:31 PM EDT) No Trudy Lewis RMA documented as of this encounter Visit Diagnoses Not on filedocumented in this encounter Care Teams [employer]er Relationship Specialty Start Date End Date Artem Hi MD [address] [place] [address] PCP - General Internal Medicine 03/13/22 12/12/23 documented as of this encounter
--- OUTSIDE RECORDS SUMMARY | 2025-05-01 13:15 | XMS_ITS | Encounter Summary ---
Author Organization Filer Address 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 [address] Type 2 diabetes mellitus with hyperglycemia, with long-term current use of insulin ([facility]); Hypertension associated with type 2 diabetes mellitus ([facility]); Type 2 diabetes mellitus with hyperlipidemia ([facility]); Long-term insulin use ([facility]); Coronary artery disease due to type 2 diabetes mellitus (HCC); Obesity, diabetes, and hypertension syndrome (HCC); Peripheral sensory neuropathy due to type 2 diabetes mellitus (HCC); Vitamin D deficiency; Hypertension associated with diabetes (HCC); Type 2 diabetes mellitus with microalbuminuria, with long-term current use of insulin ([facility]); Type 2 diabetes with nephropathy ([facility]); Class 2 severe obesity with body mass index (BMI) of 35 to 39.9 with serious comorbidity (HCC); Type 2 diabetes mellitus with cardiac complication ([facility]) Discharge Disposition: Home or Self Care Social History Tobacco Use Types Packs/Day Years [...] Date Recorded PHQ-2 Total Score 0 03/07/2021 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 90 Tablet 3 10/07/19 25 azelastine (ASTELIN) 137 mcg (0.1 %) Nasl [place], Non-Aerosol 2 Sprays in each nostril 2 times daily. 03/19/20 24 Blood Sugar Diagnostic (ACCU-CHEK GUIDE TEST STRIPS) [facility] StripIndications:Type 2 diabetes mellitus with hyperglycemia, with long-term current use of insulin (HCC),Long-term insulin use (HCC) 1 Strip by [facility].(Non-Drug; Combo Route) route 2 times daily. 100 Each 11 03/03/20 25 Blood-Glucose Meter (ACCU-CHEK GUIDE GLUCOSE METER) Misc MiscIndications:Type 2 diabetes mellitus with hyperglycemia, with long-term current use of insulin (HCC),Long-term insulin use (HCC) 1 Each by Misc.(Non-Drug; Combo Route) route continuous. 1 Each 03/03/20 25 cetirizine (ZYRTEC) 10 mg Oral Tablet Take 10 mg by mouth daily. 03/19/20 24 clopidogreL (PLAVIX) 75 mg Oral TabletIndications:S/P CABG x 3 Take 1 Tablet by mouth daily. 90 Tablet 3 03/03/20 25 DEXCOM G7 CLEANER Misc Misc 1 Each by Misc.(Non-Drug; Combo Route) route continuous. DEXCOM G7 SENSOR Misc Device Subcutaneous (Inject under the skin) 1 Each every 10 days. empagliflozin (JARDIANCE) 25 mg Oral TabletIndications:Type 2 diabetes mellitus with hyperglycemia, with long-term current use of insulin ([facility]),Hypertension associated with type 2 diabetes mellitus ([facility]),Type 2 diabetes mellitus with hyperlipidemia ([facility]),Long-term insulin use ([facility]),Coronary artery disease due to type 2 diabetes mellitus ([facility]),Obesity, diabetes, and hypertension syndrome ([facility]),Peripheral sensory neuropathy due to type 2 diabetes mellitus ([facility]),Vitamin D deficiency,Hypertension associated with diabetes ([facility]),Type 2 diabetes mellitus with microalbuminuria, with long-term current use of insulin ([facility]),Type 2 diabetes with nephropathy ([facility]),Class 2 severe obesity with body mass index (BMI) of 35 to 39.9 with serious comorbidity,Type 2 diabetes mellitus with cardiac complication ([facility]) Take 1 Tablet by mouth daily. 90 Tablet 3 05/01/20 25 ergocalciferol (DRISDOL) 1,250 mcg (50,000 unit) Oral CapsuleIndications:Type 2 diabetes mellitus with hyperglycemia, with long-term current use of insulin ([facility]),Hypertension associated with type 2 diabetes mellitus ([facility]),Type 2 diabetes mellitus with hyperlipidemia (HCC),Long-term insulin use ([facility]),Coronary artery disease due to type 2 diabetes mellitus ([facility]),Obesity, diabetes, and hypertension syndrome ([facility]),Peripheral sensory neuropathy due to type 2 diabetes mellitus ([facility]),Vitamin D deficiency,Hypertension associated with diabetes ([facility]),Type 2 diabetes mellitus with microalbuminuria, with long-term current use of insulin ([facility]),Type 2 diabetes with nephropathy ([facility]),Class 2 severe obesity with body mass index (BMI) of 35 to 39.9 with serious comorbidity,Type 2 diabetes mellitus with cardiac complication ([facility]) TAKE 2 CAPSULES BY MOUTH ONCE A WEEK 24 Capsule 3 05/01/20 25 ezetimibe (ZETIA) 10 mg Oral TabletIndications:Dyslip idemia Take 1 tablet by mouth once daily 90 Tablet 3 07/03/20 24 isosorbide mononitrate (IMDUR) 30 mg Oral Tablet Sustained Release 24 hrIndications:Chest discomfort Take 1 tablet by mouth once daily 90 Tablet 1 12/12/19 25 Lancets (ACCU-CHEK SOFTCLIX LANCETS) [facility] MiscIndications:Type 2 diabetes mellitus with hyperglycemia, with long-term current use of insulin ([facility]),Long-term insulin use ([facility]) 1 Each by [facility].(Non-Drug; Combo Route) route 2 times daily. 100 Each 11 03/03/20 25 lisinopriL (PRINIVIL;ZESTRIL) 5 mg Oral Tablet Take 1 tablet by mouth once daily 100 Tablet 04/09/20 25 metoprolol succinate (TOPROL-XL) 50 mg Oral Tablet Sustained Release 24 hr Take 1 tablet by mouth once daily 100 Tablet 1 01/22/20 25 pantoprazole (PROTONIX) 40 mg Oral Tablet, Delayed Release (E.C.)Indications:Chest discomfort,S/P coronary artery stent placement,Ischemic cardiomyopathy,Pure hypercholesterolemia Take 1 tablet by mouth once daily 100 Tablet 1 12/18/19 25 pioglitazone (ACTOS) 30 mg Oral TabletIndications:Type 2 diabetes mellitus with cardiac complication ([facility]) Take 1 Tablet by mouth daily. 90 Tablet 3 07/10/20 24 semaglutide (OZEMPIC) 2 mg/dose (8 mg/3 mL) SubQ Pen InjectorIndications:Type 2 diabetes mellitus with hyperglycemia, with long-term current use of insulin ([facility]),Hypertension associated with type 2 diabetes mellitus ([facility]),Type 2 diabetes mellitus with hyperlipidemia ([facility]),Long-term insulin use ([facility]),Coronary artery disease due to type 2 diabetes mellitus ([facility]),Obesity, diabetes, and hypertension syndrome ([facility]),Peripheral sensory neuropathy due to type 2 diabetes mellitus ([facility]),Vitamin D deficiency,Hypertension associated with diabetes (HCC),Type 2 diabetes mellitus with microalbuminuria, with long-term current use of insulin (HCC),Type 2 diabetes with nephropathy (HCC),Class 2 severe obesity with body mass index (BMI) of 35 to 39.9 with serious comorbidity,Type 2 diabetes mellitus with cardiac complication (HCC) INJECT 2MG SUBCUTANEOUSLY ONCE WEEKLY DIRECTED 9 mL 2 05/01/20 25 sertraline (ZOLOFT) 100 mg Oral TabletIndications:Major depressive disorder with single episode, in full remission Take 1 Tablet by mouth daily. 90 Tablet 3 01/11/20 22 evolocumab (REPATHA SURECLICK) 140 mg/mL SubQ Pen InjectorIndications:Dysl ipidemia Subcutaneous (Inject under the skin) 1 mL every 14 days. 6 mL 3 09/25/19 25 025 HUMALOG KWIKPEN INSULIN 100 unit/mL SubQ Insulin Pen INJECT 30 UNITS SUBCUTANEOUSLY ONCE DAILY IN DIVIDED DOSES DIRECTED 30 mL 04/02/20 25 025 Insulin [place], Disposable, (CACHORRO PEN NEEDLE) 32 gauge x 5/32 [facility] NeedleIndications:Type 2 diabetes mellitus without complication, without long-term current use of insulin ([facility]) Subcutaneous (Inject under the skin) 1 Device once a week. 1 box 10/07/19 19 025 LANTUS SOLOSTAR U-100 INSULIN 100 unit/mL (3 mL) SubQ Insulin PenIndications:Type 2 diabetes mellitus with cardiac complication (HCC),Type 2 diabetes mellitus with hyperglycemia, with long-term current use of insulin ([facility]),Hypertension associated with type 2 diabetes mellitus (HCC),Type 2 diabetes mellitus with hyperlipidemia (HCC) INJECT 45 UNITS SUBCUTANEOUSLY ONCE DAILY 45 mL 03/16/20 25 025 nitroGLYCERIN (NITROSTAT) 0.4 mg SL Tablet, SublingualIndications:Me dication refill Place 1 Tablet under the tongue every 5 minutes as needed for Chest pain. 100 Tablet 1 12/06/19 25 025 Ranolazine 1,000 mg Oral Tablet Sustained Release 12 hrIndications:Ischemic cardiomyopathy,Pure hypercholesterolemia,Elsa st discomfort,S/P coronary artery stent placement TAKE 1/2 (ONE-HALF) BY MOUTH TWICE DAILY 90 Tablet 09/09/19 25 025 documented as of this encounter Discharge Disposition Disposition Code Departure Means Destination Home or Self Care documented in this encounter Plan of Treatment Upcoming Encounters Date Type Department Care Team (Late st Contact Info) Description 10/30/2025 12:40 PM EST Office Visit [facility] [place] [address] [facility] [address] [place] [id number] Edwardo Urbano APRN [address] [place] [address] 10/30/2025 1:30 PM EST Office Visit [facility] [address] [place], [place] [id number] Rayne Trimble APRN [address] [place] [address] documented as of this encounter Goals Goal [...] Lewis RMA documented as of this encounter Procedures Procedure Name Priority Date/Time Associated Diagnosis Comments LIPID PANEL REFLEX Routine 05/01/2025 1: 31 PM EDT Type 2 diabetes mellitus with hyperlipidemia (HCC) VITAMIN D 25 HYDROXY Routine 05/01/2025 1:31 PM EDT Vitamin D deficiency ALBUMIN/CREATININE RATIO, RANDOM URINE Routine 05/01/2025 1:31 PM EDT Type 2 diabetes mellitus with hyperglycemia, with long-term current use of insulin (HCC) Hypertension associated with type 2 diabetes mellitus (HCC) Type 2 diabetes mellitus with hyperlipidemia (HCC) Long-term insulin use (HCC) Coronary artery disease due to type 2 diabetes mellitus (HCC) Obesity, diabetes, and hypertension syndrome (HCC) Peripheral sensory neuropathy due to type 2 diabetes mellitus (HCC) Vitamin D deficiency Hypertension associated with diabetes (HCC) Type 2 diabetes mellitus with microalbuminuria, with long-term current use of insulin (HCC) Type 2 diabetes with nephropathy (HCC) Class 2 severe obesity with body mass index (BMI) of 35 to 39.9 with serious comorbidity (HCC) Type 2 diabetes mellitus with cardiac complication (HCC) THYROID STIMULATING HORMONE Routine 05/01/2025 1:31 PM EDT Type 2 diabetes mellitus with hyperlipidemia (HCC) HEMOGLOBIN A1C Routine 05/01/2025 1:31 PM EDT Type 2 diabetes mellitus with hyperlipidemia (HCC) COMPREHENSIVE METABOLIC PANEL Routine 05/01/2025 1:31 PM EDT Type 2 diabetes mellitus with hyperlipidemia (HCC) documented in this encounter Results * (ABNORMAL) HEMOGLOBIN A1C (05/01/2025 1:31 PM EDT) Hgb A1C 6.0(H) 4.2 - 5.6 % 05/01/2025 2:01 PM EDT [facility] Est. Avg Glucose 126 mg/dL 05/01/2025 2:01 PM EDT [facility] [place] Blood VENOUS BLOOD / Unknown Venipuncture / Unknown 05/01/2025 1:31 PM EDT 05/01/2025 1:31 PM EDT Narrative [facility] - 05/01/2025 2:01 PM EDT REFERENCE RANGE: Normal: 4.0-5.6% Pre-diabetes: 5.7-6.4% Provisional diagnosis of diabetes: >6.4% Hgb F>10% and anything which shortens red cell survival, such as hemolytic anemia, or unstable hemoglobin variants such as HbSS, HbSC, or HbCC, will lower the HbA1c value associated with a given level of glycemic control. Edwardo Urbano BRYOLOGIST CHEMISTRY ORDERABL ES Final Result [facility] [address] [facility] , [place] [address] * (ABNORMAL) COMPREHENSIVE METABOLIC PANEL (05/01/2025 1:31 PM EDT) Sodium 142 136 - 145 mmol/L 05/01/2025 3:36 PM EDT [facility] Potassium 3.9 3.5 - 5.0 mmol/L 05/01/2025 3:36 PM EDT [facility] Chloride 107 98 - 107 mmol/L 05/01/2025 3:36 PM EDT [facility] Total CO2 24 22 - 29 mmol/L 05/01/2025 3:36 PM EDT [facility] Anion Gap 11 7 - 16 mmol/L 05/01/2025 3:36 PM EDT [facility] Calcium 9.1 8.6 - 10.4 mg/dL 05/01/2025 3:36 PM EDT [facility] Glucose Lvl 156(H) 70 - 99 mg/dL 05/01/2025 3:36 PM EDT [facility] BUN 11 6 - 20 mg/dL 05/01/2025 3:36 PM EDT [facility] Creatinine 0.67 0.67 - 1.30 mg/dL 05/01/2025 3:36 PM EDT [facility] Albumin 3.7 3.5 - 5.2 gm/dL 05/01/2025 3:36 PM EDT [facility] Total Protein 6.9 6.4 - 8.3 gm/dL 05/01/2025 3:36 PM EDT [facility] Bili Total 0.4 0.2 - 1.4 mg/dL 05/01/2025 3:36 PM EDT [facility] ALT 19 <=41 U/L 05/01/2025 3:36 PM EDT [facility] AST 16 <=40 U/L 05/01/2025 3:36 PM EDT [facility] Alk Phos 167(H) 40 - 129 U/L 05/01/2025 3:36 PM EDT [facility] eGFR (CKD-EPIcr 2020) 110 >=60 mL/min/1.7 3 m2 05/01/2025 3:36 PM EDT [facility] Comment:Estimated GFR was ca lculated using the CKD-EPIcr (2020) equation refit without race. The equation is recommended by the National Kidney Foundation - [place] [employer] Neph[employer] Task Force. Blood VENOUS BLOOD / Unknown Venipuncture / Unknown 05/01/2025 1:31 PM EDT 05/01/2025 1:31 PM EDT Edwardo Urbano BRYOLOGIST CHEMISTRY ORDERABL ES Final Result [facility] [address] [facility] , [place] [address] * LIPID PANEL REFLEX (05/01/2025 1:31 PM EDT) Cholesterol 113 <200 mg/dL 05/01/2025 3:36 PM EDT [facility] Comment: < 200 Desirable 200 - 239 Borderline High >= 240 High Triglyceride 67 <150 mg/dL 05/01/2025 3:36 PM EDT [facility] Comment: < 150 Normal 150 - 199 Borderline High 200 - 499 High >= 500 Very High HDL 59 >=40 mg/dL 05/01/2025 3:36 PM EDT [facility] Comment: > 60 Optimal 40 - 60 Acceptable < 40 Low LDL Calculated 40 <100 mg/dL 05/01/2025 3:36 PM EDT [facility] [employer] Comment: < 100 Optimal 100 - 129 Near or above optimal 130 - 159 Borderline High 160 - 189 High >= 190 Very High The National Institutes of Health (NIH) equation is used for all lipid panels that report calculated LDL (LDL-C). Non-HDL-C Calculated 54 <=129 mg/dL 05/01/2025 3:36 PM EDT [facility] [employer] Comment: <130 Desirable 130-159 Above Desirable 160-189 Borderline High 190-219 High >= 220 Very High Fasting Specimen? Yes None 025 3:36 PM EDT [facility] [employer] Blood VENOUS BLOOD / Unknown Venipuncture / Unknown 05/01/2025 1:31 PM EDT 05/01/2025 1:31 PM EDT Edwardo Urbano APRN CHEMISTRY ORDERABL ES Final Result Performing Organization Address [facility] de Phone Number [facility] [employer] [address] , [place] [address] * VITAMIN D 25 HYDROXY (05/01/2025 1:31 PM EDT) [facility] Vit D 25 OH 36.9 30.0 - 150.0 ng/mL 05/01/2025 3:45 PM EDT [employer] Comment: Preferred: >= 30 ng/mL Insufficient: 21-29 ng/mL Deficient <= 20 ng/mL Possible Toxicity: >150 ng/mL Samples should not be taken from patients receiving therapy with high biotin doses (i.e. > 5 mg/day) until at least 8 hours following the last biotin administration. Blood VENOUS BLOOD / Unknown Venipuncture / Unknown 05/01/2025 1:31 PM EDT 05/01/2025 1:31 PM EDT Edwardo Urbano APRN CHEMISTRY ORDERABL ES Final Result Performing Organization Address [facility] Co de Phone Number [facility] [employer] [address] , [place] [address] * THYROID STIMULATING HORMONE (05/01/2025 1:31 PM EDT) TSH 1.660 0.270 - 4.200 mcIU/mL 05/01/2025 3:36 PM EDT [facility] [employer] [facility] Blood VENOUS BLOOD / Unknown Venipuncture / Unknown 05/01/2025 1:31 PM EDT 05/01/2025 1:31 PM EDT Narrative [facility] - 05/01/2025 3:36 PM EDT Ingestion of sanjeev doses of biotin (>5 mg/day) taken within 8 hours of drawing blood sample can interfere with this immunoassay test. Edwardo Urbano APRN CHEMISTRY ORDERABL ES Final Result Performing Organization Address [facility] Co de Phone Number [facility] [employer] [address] [address] * MICROALBUMIN/CREATININE RATIO URINE (05/01/2025 1:31 PM EDT) Pathologist [facility] Urine Albumin <12.0 mg/L 05/01/2025 2:57 PM EDT [facility] [employer] [facility] Urine Creatinine 122.0 mg/dL 05/01/20 25 2:57 PM EDT [facility] [employer] [facility] Ur Albumin/Creat Ratio 05/01/2025 2:57 PM EDT [facility] [employer] [facility] Comment: Because the albumin level is below the level of detection in this urine specimen, the laboratory is unable to calculate a reliable albumin/creatinine ratio. Microalbuminuria is unlikely if the urine albumin concentration is less than 20- 30 mg/L in a random specimen. Urine STRUCTURE OF URINARY TRACT PROPER / Unknown 05/01/2025 1:31 PM EDT 05/01/2025 1:31 PM EDT Edwardo Urbano APRN URINE ORDERABLES F inal Result Performing Organization Address [facility] Co de Phone Number [facility] [employer] [facility] [address] [facility] [address] documented in this encounter Visit Diagnoses Diagnosis Type 2 diabetes mellitus with hyperglycemia, with long-term current use of insulin (HCC) Hypertension associated with type 2 diabetes mellitus (HCC) Type 2 diabetes mellitus with hyperlipidemia (HCC) Long-term insulin use (HCC) Encounter for long-term (current) use of insulin Coronary artery disease due to type 2 diabetes mellitus ([facility]) Obesity, diabetes, and hypertension syndrome ([facility]) Type II or unspecified type diabetes mellitus without mention of complication, not stated as uncontrolled Peripheral sensory neuropathy due to type 2 diabetes mellitus ([facility]) Vitamin D deficiency Unspecified vitamin D deficiency Hypertension associated with diabetes (HCC) Type II or unspecified type diabetes mellitus with other specified manifestations, not stated as uncontrolled Type 2 diabetes mellitus with microalbuminuria, with long-term current use of insulin ([facility]) Type 2 diabetes with nephropathy (HCC) Type II or unspecified type diabetes mellitus with renal manifestations, not stated as uncontrolled Class 2 severe obesity with body mass index (BMI) of 35 to 39.9 with serious comorbidity Type 2 diabetes mellitus with cardiac complication ([facility]) documented in this encounter Orders Lab Orders Without Results Count Last Ordered D ate First Ordered Date MICROALBUMIN/CREATININE RATIO URINE 1 05/01 documented in this encounter
--- OUTSIDE RECORDS SUMMARY | 2025-05-01 15:00 | XMS_ITS | Encounter Summary ---
Author Organization [place] [address] Care Team Providers Care Supervisor [place] Name Role Phone Unavailable Primary Care Provider Unavailabl e Reason for Referral * Consultation (Routine) - Pending Review Specialty Diagnoses / Procedures Referred By Contlefty t Referred To Contact Sleep Center Diagnoses Type 2 diabetes mellitus with hyperglycemia, with [...] 2 diabetes mellitus with cardiac complication (HCC) Procedures [facility] OFFICE/OUTPATIENT NEW MODERATE MDM 45 MINUTES Edwardo Urbano APRN [address] [place] [address] Phone: tel: fax: Referral ID Status Reason Start Date Expiration Date V isits Requested Visits Authorized [id number] Pending Review 05/01/2025 05/01/2026 99 99 Question Answer What test needs to be performed? Appropriate testing as determined by sleep specialist/sleep medicine protocols Comments Snores and have fatigue, diabetes Reason for Visit * Reason Comments Diabetes Encounter Details Date Type Department Care Team (Latest Contact Info) Description 05/01/2025 3:00 PM EDT Office Visit [facility] [place] [address] [phone] Edwardo Urbano APRN [address] [place] [address] [place] [address] Type 2 diabetes mellitus with hyperglycemia, with long-term current use of insulin (HCC); Hypertension associated with type 2 diabetes mellitus (HCC); Type 2 diabetes mellitus with hyperlipidemia (HCC); Long-term insulin use (HCC); Coronary artery disease due to type 2 diabetes mellitus (HCC); Obesity, diabetes, and hypertension syndrome (HCC); Peripheral sensory neuropathy due to type 2 diabetes mellitus (HCC); Vitamin D deficiency; Hypertension associated with diabetes (HCC); Type 2 diabetes mellitus with microalbuminuria, with long-term current use of insulin (HCC); Type 2 diabetes with nephropathy (HCC); Class 2 severe obesity with body mass index (BMI) of 35 to 39.9 with serious comorbidity (HCC); Type 2 diabetes mellitus with cardiac complication (HCC) Social History Tobacco Use Types Packs/Day Years [...] Date Recorded PHQ-2 Total Score 0 03/07/2021 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 Not on file Not on file documented as of this encounter Last Filed Vital Signs Vital Sign Reading Time Taken Comments Blood Pressure 130/64 05/01/2025 2:34 PM EDT Pulse 83 05/01/2025 2:34 PM EDT Temperature - - Respiratory Rate 18 05/01/2025 2:34 PM EDT Oxygen Saturation - - Inhaled Oxygen Concentration - - Weight 120.3 kg (265 lb 3.2 oz) 05/01/2025 2:34 PM EDT Height 180.3 cm (5' 11 ) 05/01/2025 2:34 PM EDT Body Mass Index 36.99 05/01/2025 2:34 PM EDT documented in this encounter Functional Status * Is the [...] Skye Boss RN documented in this encounter Ordered Prescriptions Prescription Sig Dispense Quantity Refills Last Filled Start Date End Date semaglutide (OZEMPIC) 2 mg/dose (8 mg/3 mL) SubQ Pen InjectorIndications :Type 2 diabetes mellitus with hyperglycemia, with long-term current use of insulin ([facility]),Hypertension associated with type 2 diabetes mellitus ([facility]),Type 2 diabetes mellitus with hyperlipidemia ([facility]),Long-term insulin use ([facility]),Coronary artery disease due to type 2 diabetes mellitus ([facility]),Obesity, diabetes, and hypertension syndrome ([facility]),Peripheral sensory neuropathy due to type 2 diabetes mellitus ([facility]),Vitamin D deficiency,Hyperten ingrid associated with diabetes ([facility]),Type 2 diabetes mellitus with microalbuminuria, with long-term current use of insulin ([facility]),Type 2 diabetes with nephropathy ([facility]),Class 2 severe obesity with body mass index (BMI) of 35 to 39.9 with serious comorbidity,Type 2 diabetes mellitus with cardiac complication ([facility]) INJECT 2MG SUBCUTANEOUSLY ONCE WEEKLY DIRECTED 9 mL 2 5 ergocalciferol (DRISDOL) 1,250 mcg (50,000 unit) Oral CapsuleIndications: Type 2 diabetes mellitus with hyperglycemia, with long-term current use of insulin (HCC),Hypertension associated with type 2 diabetes mellitus (HCC),Type 2 diabetes mellitus with hyperlipidemia (HCC),Long-term insulin use (HCC),Coronary artery disease due to type 2 diabetes mellitus (HCC),Obesity, diabetes, and hypertension syndrome (HCC),Peripheral sensory neuropathy due to type 2 diabetes mellitus (HCC),Vitamin D deficiency,Hyperten ingrid associated with diabetes (HCC),Type 2 diabetes mellitus with microalbuminuria, with long-term current use of insulin (HCC),Type 2 diabetes with nephropathy (HCC),Class 2 severe obesity with body mass index (BMI) of 35 to 39.9 with serious comorbidity,Type 2 diabetes mellitus with cardiac complication (HCC) TAKE 2 CAPSULES BY MOUTH ONCE A WEEK 24 Capsule 3 5 empagliflozin (JARDIANCE) 25 mg Oral TabletIndications:T ype 2 diabetes mellitus with hyperglycemia, with long-term current use of insulin (HCC),Hypertension associated with type 2 diabetes mellitus (HCC),Type 2 diabetes mellitus with hyperlipidemia (HCC),Long-term insulin use (HCC),Coronary artery disease due to type 2 diabetes mellitus (HCC),Obesity, diabetes, and hypertension syndrome (HCC),Peripheral sensory neuropathy due to type 2 diabetes mellitus (HCC),Vitamin D deficiency,Hyperten ingrid associated with diabetes (HCC),Type 2 diabetes mellitus with microalbuminuria, with long-term current use of insulin (HCC),Type 2 diabetes with nephropathy (HCC),Class 2 severe obesity with body mass index (BMI) of 35 to 39.9 with serious comorbidity,Type 2 diabetes mellitus with cardiac complication (HCC) Take 1 Tablet by mouth daily. 90 Tablet 3 5 documented in this encounter Progress Notes * Edwardo Urbano, GUANACO - 05/01/2025 3:00 PM EDT Images from the original note were not included. Subjective Subjective: Patient ID: Geovanny Marquez is a 54 y.o. male. Chief Complaint Patient presents with Diabetes HPI: DM Type 2, with hyperglycemia, on jail insulin therapy; Symptoms/problems include hyperglycemia and have been stable . Glucose Monitoring: Dexcom CGM sensor reviewed: Dexcom G7 14 days reviewed Avg B ; (+-) 39 16 % High 84 % in range 0 % Low DM Medications: Tresiba 45 in am Pioglitazone 30 mg Ozempic 2mg weekly Jardiance 25 mg daily Humalog 5/5/5 +CF 1:25>120 (avg 6-13 units 2-3 time a day) Previous DM Medications: Patient was tried on these diabetic medications Insulin medications: -insulin aspart, insulin degludec, insulin glargine,hum.rec.anlog, insulin lispro, insulin regular, human Insulin release stimulant medications: No insulin release stimulant medication orders found for patient DPP-4 inhibitor medications: -linagliptin, saxagliptin HCl, sitagliptin phosphate GLP-1 agonists medications: -liraglutide, semaglutide Incretin mimetic combination medications: No incretin mimetic combination medication orders found for patient Other hyperglycemic medications: -canagliflozin, dapagliflozin propanediol, empagliflozin, ertugliflozin pidolate, metformin HCl, pioglitazone HCl Patients past medical, family and social histories were reviewed and updated. There were no changesexcept as noted. Review of Systems All other systems reviewed and are negative. Objective Objective: Vitals: 05/01/25 1434 BP: 130/64 BP Location: Left arm Patient Position: Sitting Pulse: 83 Resp: 18 Weight: 265 lb 3.2 oz (120.3 kg) Height: 5' 11 (1.803 m) Body mass index is 36.99 kg/m??. Physical Exam Vitals reviewed. Constitutional: General: He is awake. He is not in acute distress. Appearance: Normal appearance. He is well-developed. He is not ill-appearing, toxic-appearing or diaphoretic. HENT: Head: Normocephalic and atraumatic. No right periorbital erythema or left periorbital erythema. Hair is normal. Jaw: No swelling. Right Ear: External ear normal. No swelling. Left Ear: External ear normal. No swelling. Nose: Nose normal. Mouth/Throat: Lips: [place]. Mouth: No angioedema. Eyes: General: Lids are normal. Gaze aligned appropriately. No scleral icterus. Right eye: No discharge. Left eye: No discharge. Pulmonary: Effort: Pulmonary effort is normal. No respiratory distress. Breath sounds: No stridor. Musculoskeletal: Cervical back: No edema, rigidity or torticollis. Skin: Coloration: Skin is not ashen, cyanotic, jaundiced, mottled or pale. Findings: No erythema. Neurological: General: No focal deficit present. Mental Status: He is alert. Mental status is at baseline. Psychiatric: Attention and Perception: Attention normal. Mood and Affect: Mood and affect normal. Affect is not inappropriate. Speech: Speech normal. Behavior: Behavior normal. Behavior is cooperative. Thought Content: Thought content normal. Cognition and Memory: Cognition normal. Judgment: Judgment normal. Judgment is not impulsive or inappropriate. Assessment and Plan: DM Type 2, with hyperglycemia, on jail insulin therapy; Lab Results Component Value Date HGBA1C 6.0 (H) 05/01/2025 HGBA1C 6.5 (H) 10/01/2024 HGBA1C 6.5 03/19/2024 Goal A1c <7 to be obtained safely avoiding hypoglycemia. Discussed at length the importance glycemic control to reduce the risk of short- and long-term microvascular and macrovascular complications., Other topics of discussion included:, importance of medication adherence , relevant labs , insulin adjustments, blood sugar goals, A1c what it means and why it is important. Glucose Monitoring/Meds: No meter for review today. NO hypoglycemia noted Tresiba 45 Pioglitazone 30 mg (had swelling at higher doses) Ozempic 2 mg weekly Jardiance 25 mg Humlog +CF 1:25>120 Call if lows <70 and will decrease insulin as needed. He will work on diet and if no improvements we can discuss a SML scale. Weight Management Assessment: Body mass index is 36.99 kg/m??. Obese. Advised decreased calories and increased physical activity as tolerated. Limit caloric intake and maintain physical activity. Low saturated fats, high fiber, lean proteins,and whole grains along with veggies and moderate fruit intake. Advised to strive for carb intake to less than 45 grams for meal and 15gms for snacks Blood Pressure Assessment: Known HTN. BP goal is <140/90. BP at Goal. Patient is on MIKY/ARB. Follows with cardiology Aspirin Therapy: Continue current ASA therapy Lipid Assessment: The ASCVD Risk score (Licha HANSON, et al., 2019) failed to calculate. Pure Hypercholesterolemia, Lipid Goals: Total <200, LDL <55, HDL >40, Trigs<150. , Trigs elevated above goal., Known cardiovascular complications including:, Previous AK or Stroke/CVA., Known CAD., GLP-1 Agonist for known CAD risk reduction. He is following with cardiology. Advised to continue cholesterol reduction and weight loss efforts through diet, portion control andincreased activity. On statin. 40 mg Atorvastatin On Zetia. On PSK-9i- Repatha Labs/testing ordered Renal Assessment: Proteinuria resolved with most recent testing., Diabetic Nephropathy BP management as above. not yet obtained by patient. Foot Assessment: High risk, Patient has Diabetic peripheral neuropathy and Known PVD/Venous insufficiency, High risk for wound development and compromised healing. Diabetic foot education provided. Patient has a corn that he states he needs removed. Established with Podiatry [place] is healing but still an issue Defer to specialist Eye Screen: Negative for diabetic retinopathy Patient encouraged to obtain annual ophthalmic exam. Signiant; [employer] Defer to specialist KENRICK: Diagnosed KENRICK, does not have CPAP/BIPAP Educated on the effects of sleep apnea as it relates to glucose control, cardiovascular health and weight management. Advised he follow up with previous sleep med team. Vitamin D: Deficient Ergo 50,000iu, 2x a week Labs/testing ordered Return in about 6 months (around 10/29/2025) for COV 20 min FU, Diabetes. Labs now, will contact with any needed changes to care plan/meds. , Labs prior to follow-up, (October) 1. Type 2 diabetes mellitus with hyperglycemia, with long-term current use of insulin (HCC) 2. Hypertension associated with type 2 diabetes mellitus (HCC) 3. Type 2 diabetes mellitus with hyperlipidemia (HCC) 4. Long-term insulin use (HCC) 5. Coronary artery disease due to type 2 diabetes mellitus (HCC) 6. Obesity, diabetes, and hypertension syndrome (HCC) 7. Peripheral sensory neuropathy due to type 2 diabetes mellitus (HCC) 8. Vitamin D deficiency 9. Hypertension associated with diabetes (HCC) 10. Type 2 diabetes mellitus with microalbuminuria, with long-term current use of insulin (HCC) 11. Type 2 diabetes with nephropathy (HCC) 12. Class 2 severe obesity with body mass index (BMI) of 35 to 39.9 with serious comorbidity (HCC) 13. Type 2 diabetes mellitus with cardiac complication (HCC) Documentation of clinical findings performing appropriate exam for visit conditions were complete and documented in the EHR as above. The conditions discussed are systemic in nature and represent diseases likely in lifelong chronicity. Counseling and education performed including lifestyle issues in addition to adherence with medication, and how this plays a role in alleviating exacerbating factors and prevention of chronic complications and comorbid conditions. The review of labs, physical findings and analysis of appropriate medications represents a decision of high complexity with regard to health threatening risks, benefits, and side effects of medicines and underlying conditions managed and reviewed with patient. Medication Management including the ordering or new or current medications was performed in the context of today's visit. At this visit the management of insulin was discussed. Management of insulin includes dynamic dosing, technique and timing. Consequences of incorrectdosing of insulin includes the life threatening consequences of hyper and hypoglycemia. No ancillary CDE assistance. Clinical diabetes education was performed by this provider and represents a level of high complexity and time in reviewing the self management of diabetes. Basic DSME, survival skills, (as noted above in AP) reviewed by provider during this visit. CGM review and analysis. This patient has diabetes and has been using a blood glucose monitor to perform testing BGM; and the beneficiary is insulin-treated with daily injections of insulin or a Medicare-covered continuous subcutaneous insulin infusion (CSII) pump; and The beneficiary's insulin treatment regimen requires frequent adjustment by the patient on the basis of BGM or CGM testing. This is medically necessary to prevent dangerous hyper and/or hypoglycemic events that may potentially lead to serious health consequences and or acute medical intervention. FOLLOW UP 30-39 (33) minutes spent on preparation, face to face, charting for the visit, counseling and coordination of care. Discussion of topics mentioned in above A&P. Patient Instructions The referral(s) below have been placed. Sleep Medicine ([place]): Please call [phone] * Amie Jean MA - 05/01/2025 3:00 PM EDT Patient tests BS with Dexcom sharing up to April 03. Patient's phone is broken . Dexcom sharing Pharmacy verified. Refills pending. documented in this encounter Miscellaneous Notes * Patient Instructions - Edwardo Urbano APRN - 05/01/2025 3:00 PM EDT The referral(s) below have been placed. Sleep Medicine ([place]): Please call [phone] documented in this encounter Plan of Treatment Upcoming Encounters Date Type Department Care Team (Late st Contact Info) Description 10/30/2025 12:40 PM EST Office Visit [facility] [address] [facility] [address] [place] [address] Edwardo Urbano APRN [address] [place] [address] 10/30/2025 1:30 PM EST Office Visit [facility] [address] [id number] Rayne Trimble APRN [address] [place] [address] Scheduled Orders Name Type Priority Associated Diagnoses Orde r Schedule VA CONTINUOUS GLUCOSE MONITORING ANALYSIS I&R VA Charge Routine Type 2 diabetes mellitus with hyperglycemia, with [...] 2 diabetes mellitus with cardiac complication (HCC) Ordered: 05/01/2025 TSH REFLEX TO FT4 Lab Routine Type 2 diabetes mellitus with hyperglycemia, with [...] 2 diabetes mellitus with cardiac complication (HCC) Expected: 10/10/2025 (Approximate), Expires: 05/01/2026 VITAMIN D 25 HYDROXY Lab Routine Type 2 diabetes mellitus with hyperglycemia, with [...] 2 diabetes mellitus with cardiac complication (HCC) Expected: 10/10/2025 (Approximate), Expires: 05/01/2026 LIPID PANEL REFLEX Lab Routine Type 2 diabetes mellitus with hyperglycemia, with [...] 2 diabetes mellitus with cardiac complication (HCC) Expected: 10/10/2025 (Approximate), Expires: 05/01/2026 COMPREHENSIVE METABOLIC PANEL Lab Routine Type 2 diabetes mellitus with hyperglycemia, with [...] 2 diabetes mellitus with cardiac complication (HCC) Expected: 10/10/2025 (Approximate), Expires: 05/01/2026 HEMOGLOBIN A1C Lab Routine Type 2 diabetes mellitus with hyperglycemia, with [...] 2 diabetes mellitus with cardiac complication (HCC) Expected: 10/10/2025 (Approximate), Expires: 05/01/2026 Scheduled Referrals Name Type Priority Associated Diagnoses Orde r Schedule AMB REFERRAL TO SLEEP STUDIES/MEDICINE Outpatient Referral Routine Type 2 diabetes mellitus with hyperglycemia, with [...] 2 diabetes mellitus with cardiac complication (HCC) Ordered: 05/01/2025 documented as of this encounter Goals Goal [...] documented as of this encounter Visit Diagnoses Diagnosis Type 2 diabetes mellitus with hyperglycemia, with long-term current use of insulin (HCC) Hypertension associated with type 2 diabetes mellitus (HCC) Type 2 diabetes mellitus with hyperlipidemia (HCC) Long-term insulin use (HCC) Encounter for long-term (current) use of insulin Coronary artery disease due to type 2 diabetes mellitus (HCC) Obesity, diabetes, and hypertension syndrome (HCC) Type II or unspecified type diabetes mellitus without mention of complication, not stated as uncontrolled Peripheral sensory neuropathy due to type 2 diabetes mellitus (HCC) Vitamin D deficiency Unspecified vitamin D deficiency Hypertension associated with diabetes (HCC) Type II or unspecified type diabetes mellitus with other specified manifestations, not stated as uncontrolled Type 2 diabetes mellitus with microalbuminuria, with long-term current use of insulin (HCC) Type 2 diabetes with nephropathy (HCC) Type II or unspecified type diabetes mellitus with renal manifestations, not stated as uncontrolled Class 2 severe obesity with body mass index (BMI) of 35 to 39.9 with serious comorbidity Type 2 diabetes mellitus with cardiac complication (HCC) documented in this encounter Discontinued Medications Medication Sig Discontinue Reason Start Date End Da te ergocalciferol (DRISDOL) 1,250 mcg (50,000 unit) Oral CapsuleIndications:Typ e 2 diabetes mellitus with hyperglycemia, with long-term current use of insulin (HCC),Long-term insulin use (HCC),Type 2 diabetes mellitus with cardiac complication (HCC),Coronary artery disease due to type 2 diabetes mellitus (HCC),Hypertension associated with type 2 diabetes mellitus (HCC),Type 2 diabetes mellitus with hyperlipidemia (HCC),Obesity, diabetes, and hypertension syndrome (HCC),Peripheral sensory neuropathy due to type 2 diabetes mellitus (HCC),Vitamin D deficiency,Hypertensio n associated with diabetes (HCC),Type 2 diabetes mellitus with microalbuminuria, with long-term current use of insulin (HCC),Type 2 diabetes with nephropathy (HCC),Class 2 severe obesity with body mass index (BMI) of 35 to 39.9 with serious comorbidity TAKE 2 CAPSULES BY MOUTH ONCE A WEEK Reorder 11/24/2024 05/01/2025 semaglutide (OZEMPIC) 2 mg/dose (8 mg/3 mL) SubQ Pen InjectorIndications:Ty pe 2 diabetes mellitus with hyperglycemia, with long-term current use of insulin (HCC),Long-term insulin use (HCC),Type 2 diabetes mellitus with cardiac complication (HCC),Coronary artery disease due to type 2 diabetes mellitus (HCC),Hypertension associated with type 2 diabetes mellitus (HCC),Type 2 diabetes mellitus with hyperlipidemia (HCC),Obesity, diabetes, and hypertension syndrome (HCC),Peripheral sensory neuropathy due to type 2 diabetes mellitus (HCC),Vitamin D deficiency,Hypertensio n associated with diabetes (HCC),Type 2 diabetes mellitus with microalbuminuria, with long-term current use of insulin (HCC),Type 2 diabetes with nephropathy (HCC),Class 2 severe obesity with body mass index (BMI) of 35 to 39.9 with serious comorbidity INJECT 2MG SUBCUTANEOUSLY ONCE WEEKLY DIRECTED Reorder 12/08/2024 05/01/2025 empagliflozin (JARDIANCE) 25 mg Oral TabletIndications:Type 2 diabetes mellitus with cardiac complication (HCC) Take 1 tablet by mouth once daily Reorder 01/21/2025 05/01/2025 documented as of this encounter
--- OUTSIDE RECORDS SUMMARY | 2025-05-07 13:00 | XMS_ITS | Encounter Summary ---
Author Organization [place] [address] Care Team Providers Care Operations Research Scientist Name Role Phone Unavailable Primary Care Provider Unavailabl e Reason for Visit * Reason Comments Follow-up Encounter Details Date Type Department Care Team (Latest Contact Info) Description 05/07/2025 1:00 PM EDT Office Visit [facility] [address] [place] [address] Fabiano Mae MD [address] [place] [address] Pure hypercholesterolemia (Primary Dx); S/P coronary artery stent placement; Ischemic cardiomyopathy; S/P CABG x 3; Refractory angina pectoris Social History Tobacco Use Types Packs/Day Years Used Date Smoking Tobacco: Former Cigarettes 1 28.2 0 08/27/1982 - 11/26/2010 Smokeless Tobacco: Never Tobacco Cessation:Counseling Given: Not Answered Alcohol Use Standard Drinks/Week Comments No 0 (1 standard drink = 0.6 oz pur e alcohol) denies Overall Financial Resource Strain (CARDIA) Answe r Date Recorded How hard is it for you to pa y for the very basics like food, housing, medical care, and heating? 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 Answer Date of Assessment Author No 09/17/2018 9:34 AM Skye oBss RN * Is the person blind or [...] Skye Boss RN documented in this encounter Progress Notes * Fabiano Mae MD - 05/07/2025 1:00 PM EDT Cardiology Follow Up Visit Name: Geovanny marquez : 1970 Referring Physician No primary care provider on file. Reason for Follow-up CAD h/o CABG, Hypertension, Hyperlipemia HPI 54 y.o. male is seen for follow up regarding CAD, hypertension and hyperlipidemia. He has been fairly stable from cardiac perspective. He still notes mild chest pressure with heavy activity but predictably resides with rest. No change in frequency or intensity. Blood pressure tends to run low but no orthostatic symptoms. Blood sugars have been well controlled. Compliant with all medications. ROS Denies: Change in vision, headache, fever, chills, nausea, vomiting, anorexia, diarrhea, change in bowel or bladder habits, weight loss or gain. No palpitations, lightheadedness, dizziness, syncope, or near syncope. No extreme fatigue, daytime solomence or change in energy level. No significant depression or anhedonia. Current Outpatient Medications Medication Sig Dispense Refill albuterol (PROVENTIL HFA;VENTOLIN HFA) 90 mcg/actuation Inhl HFA Aerosol Inhaler INHALE 2 PUFFS INTO THE LUNGS EVERY 4 HOURS NEEDED FOR WHEEZING 6.7 g 0 aspirin 81 mg Oral Tablet, Delayed Release (E.C.) Take 1 tablet by mouth once daily 90 Tablet 0 atorvastatin (LIPITOR) 40 mg Oral Tablet Take 2 Tablets by mouth daily. 90 Tablet 3 azelastine (ASTELIN) 137 mcg (0.1 %) Nasl [place], Non-Aerosol 2 Sprays in each nostril 2 times daily. cetirizine (ZYRTEC) 10 mg Oral Tablet Take 10 mg by mouth daily. clopidogreL (PLAVIX) 75 mg Oral Tablet Take 1 Tablet by mouth daily. 90 Tablet 3 empagliflozin (JARDIANCE) 25 mg Oral Tablet Take 1 Tablet by mouth daily. 90 Tablet 3 ergocalciferol (DRISDOL) 1,250 mcg (50,000 unit) Oral Capsule TAKE 2 CAPSULES BY MOUTH ONCE A WEEK 24 Capsule 3 evolocumab (REPATHA SURECLICK) 140 mg/mL SubQ Pen Injector Inject 1 mL under the skin every 14 days. 6 mL 3 ezetimibe (ZETIA) 10 mg Oral Tablet Take 1 tablet by mouth once daily 90 Tablet 3 HUMALOG KWIKPEN INSULIN 100 unit/mL SubQ Insulin Pen INJECT 30 UNITS SUBCUTANEOUSLY ONCE DAILY IN DIVIDED DOSES DIRECTED 30 mL 0 Insulin [place], Disposable, (CACHORRO PEN NEEDLE) 32 gauge x 5/32 Misc Needle Subcutaneous (Inject under the skin) 1 Device once a week. 100 Each 1 isosorbide mononitrate (IMDUR) 30 mg Oral Tablet Sustained Release 24 hr Take 1 tablet by mouth once daily 90 Tablet 1 LANTUS SOLOSTAR U-100 INSULIN 100 unit/mL (3 mL) SubQ Insulin Pen INJECT 45 UNITS SUBCUTANEOUSLY ONCE DAILY 45 mL 0 lisinopriL (PRINIVIL;ZESTRIL) 5 mg Oral Tablet Take 1 tablet by mouth once daily 100 Tablet 0 metoprolol succinate (TOPROL-XL) 50 mg Oral Tablet Sustained Release 24 hr Take 1 tablet by mouth once daily 100 Tablet 1 nitroGLYCERIN (NITROSTAT) 0.4 mg SL Tablet, Sublingual Place 1 Tablet under the tongue every 5 minutes as needed for Chest pain. 100 Tablet 1 pioglitazone (ACTOS) 30 mg Oral Tablet Take 1 Tablet by mouth daily. 90 Tablet 3 Ranolazine 1,000 mg Oral Tablet Sustained Release 12 hr Take 1 Tablet by mouth 2 times daily. 180 Tablet 1 semaglutide (OZEMPIC) 2 mg/dose (8 mg/3 mL) SubQ Pen Injector INJECT 2MG SUBCUTANEOUSLY ONCE WEEKLYAS DIRECTED 9 mL 2 sertraline (ZOLOFT) 100 mg Oral Tablet Take 1 Tablet by mouth daily. 90 Tablet 3 Blood Sugar Diagnostic (ACCU-CHEK GUIDE TEST STRIPS) Misc Strip 1 Strip by Misc.(Non-Drug; Combo Route) route 2 times daily. (Patient not taking: Reported on 05/07/2025) 100 Each 11 Blood-Glucose Meter (ACCU-CHEK GUIDE GLUCOSE METER) Misc Misc 1 Each by Misc.(Non-Drug; Combo Route) route continuous. (Patient not taking: Reported on 05/07/2025) 1 Each 0 DEXCOM G7 BOWLING ALLEY MANAGER Misc Misc 1 Each by Misc.(Non-Drug; Combo Route) route continuous. (Patient not taking: Reported on 05/07/2025) DEXCOM G7 SENSOR Misc Device Subcutaneous (Inject under the skin) 1 Each every 10 days. (Patient not taking: Reported on 05/07/2025) Lancets (ACCU-CHEK SOFTCLIX LANCETS) Misc Misc 1 Each by Misc.(Non-Drug; Combo Route) route 2 timesdaily. (Patient not taking: Reported on 05/07/2025) 100 Each 11 pantoprazole (PROTONIX) 40 mg Oral Tablet, Delayed Release (E.C.) Take 1 tablet by mouth once daily(Patient not taking: Reported on 05/07/2025) 100 Tablet 1 No current facility-administered medications for this visit. Allergies Allergen Reactions Metformin Diarrhea and Other (See Comments) Objective Vitals: 05/07/25 1300 BP: 106/56 Pulse: 70 SpO2: 97% Exam: GENERAL APPEARANCE: In no acute distress HEENT: Normocephalic, Atraumatic, Sclera anicteric, Pupils equal, round, and reactive. NECK: No JVD, No Bruit. Carotid upstrokes are full. RESPIRATORY: Normal breath sounds bilaterally. No rales or wheezing HEART: Normal S1, S2- No S3, S4. No Murmur VASCULAR: Normal pulses, equal bilaterally. ABDOMEN: Soft, nontender, no organomegaly, no distension. Bowel sounds are normoactive. EXTREMITIES: No edema. Right groin is soft No results found for this visit on 05/07/25. Labs Lab Results Component Value Date CHOLESTEROL 113 05/01/2025 CHOLESTEROL 63 10/01/2024 CHOLESTEROL 75 03/19/2024 HDL 59 05/01/2025 HDL 50 10/01/2024 HDL 55 03/19/2024 LDLCALC 40 05/01/2025 LDLCALC <4 10/01/2024 LDLCALC 58 10/11/2023 TRIG 67 05/01/2025 TRIG 47 10/01/2024 TRIG 80 03/19/2024 Lab Results Component Value Date INR 1.04 10/19/2021 INR 0.97 09/12/2018 INR 1.02 09/10/2018 Lab Results Component Value Date WBC 8.9 05/12/2022 WBC 7.9 10/19/2021 WBC 8.6 07/26/2021 HGB 15.1 05/12/2022 HGB 14.3 10/19/2021 HGB 16.1 07/26/2021 HCT 44.6 05/12/2022 HCT 42.5 10/19/2021 HCT 44.9 07/26/2021 MCV 88.7 05/12/2022 MCV 89.5 10/19/2021 MCV 86.7 07/26/2021 PLT 329 05/12/2022 PLT 314 10/19/2021 PLT 326 07/26/2021 Lab Results Component Value Date HGBA1C 6.0 (H) 05/01/2025 HGBA1C 6.5 (H) 10/01/2024 HGBA1C 6.5 03/19/2024 Lab Results Component Value Date NA 142 05/01/2025 NA 143 10/01/2024 NA 141 03/19/2024 K 3.9 05/01/2025 K 3.9 10/01/2024 K 4.3 03/19/2024 BUN 11 05/01/2025 BUN 11 10/01/2024 BUN 12 03/19/2024 CALCIUM 9.1 05/01/2025 CALCIUM 9.3 10/01/2024 CALCIUM 9.70 03/19/2024 CL 107 05/01/2025 CL 107 10/01/2024 CL 108 03/19/2024 CO2 24 05/01/2025 CO2 28 10/01/2024 CO2 26 03/19/2024 CREATININE 0.67 05/01/2025 CREATININE 0.70 10/01/2024 CREATININE 0.7 03/19/2024 GLU 156 (H) 05/01/2025 GLU 139 (H) 10/01/2024 GLU 114 (H) 10/11/2023 Lab Results Component Value Date ALT 19 05/01/2025 ALT 23 10/01/2024 ALT 34 03/19/2024 AST 16 05/01/2025 AST 21 10/01/2024 AST 29 03/19/2024 ALKPHOS 167 (H) 05/01/2025 ALKPHOS 176 (H) 10/01/2024 ALKPHOS 181 (A) 03/19/2024 BILITOT 0.5 03/19/2024 BILITOT 0.3 06/13/2023 Lab Results Component Value Date TSHREFLEX 1.230 10/01/2024 Cardiac Testing: GXT- Cardiolite 06/07: 9.6 METs. Negative for ischemia. GXT- Cardiolite stress test 11/09: 9.5 METs. Ischemic ekg changes with normal nuclear perfusion test. Cardiac Cath 05/12: POBA to thrombotic LAD instent occlusion. High grade mid RCA. EF 35-40%. Echo 06/12: EF 50%, mild CLVH, mild TR Cardiac Cath 09/14: High grade 95% distal RCA at crux at prior stent edge. Moderate ISR in mid RCA and mid LAD. OM2 with 70% ostial but small caliber. EF 45-50% with inferior hypokinesis Echo 10/15: EF 55-60%, mild RVE, mild LAE 14 day Event Monitor 12/15: sinus with occasional PAC, frequent periods of low grade sinus tachycardia Echo 02/14: EF 50%, mild LVH, HK inferoapical, mild RV dilatation, mild MR/TR Cardiac Cath 11/15: Very atretic and functionally occluded SVG to OM with trivial flow but likely source of angina. Mid LCx 90% reduced to 0% following PCI with 2.75 x 28 Xience GANGA. Occluded mild RCAfilling via patent SVG. Widely patent SVG to PDA with good retrograde filling into PLV Widely patent VILLATORO to LAD with good retrograde flow into 2 diagonal branches. Preserved LV function Lexiscan - MPI 01/15: nondiagnostic ekg. No clear reversible. Cardiac Cath 05/18: Stable coronary anatomy. Patent SVG to RCA. Patent VILLATORO to LAD. Widely patent stent in mid LCx. Ostial LCx of 50-60% which is not flow limiting by FFR of 0.88. Atretic SVG to LCx which remains patent but severely atretic throughout its entire course and probable source of angina but not good option for PCI Echo 02/16: EF 50-55%. Lateral and distal anterior rojas appear mildly hypokinetic. Mild LVH. Mild MR/TR. Assessment: Chronic Angina - underlying chronic ischemic heart dz - stable anginal pattern CAD s/p CABG 09/14 - PCI to distal RCA 10/06 setting of IWMI with staged PCI to mid LAD 11/03 - PCI to mid RCA 2011 with overlapping previous stent - Late stent thrombosis of LAD stent treated with PTCA 05/12 and staged PCI to RCA 05/12 - PCI of mid LCx 11/15 Ischemic cardiomyopathy - EF 50% range Possible Coagulopathy - multiple issues with late stent thrombosis - now on DAPT Hypertension - trending low Dyslipidemia - very well controlled on Lipitor, Zetia and Repatha Tobacco use - abstinent for several years IDDM - improved control Nausea - improved off Ranexa Palpitations - stable KENRICK - he did not follow thru with CPAP Obesity Plan Continue Imdur, Atorvastatin, Repatha, asa, Plavix, Jardiance, Metoprolol Ok to stop Zetia Will hold on increasing Imdur with low blood pressure Labs reviewed Echo to reassess LV function RTC 6 months P. Gui Mae MD documented in this encounter Plan of Treatment Upcoming Encounters Date Type Department Care Team (Late st Contact Info) Description 10/30/2025 12:40 PM EST Office Visit [place] [address] [facility] [address] [place] [phone] Edwardo Urbano APRN [address] [place] [address] 10/30/2025 1:30 PM EST Office Visit [facility] [place] [address] [place] [phone] Rayne Trimble APRN [address] [place] [phone] documented as of this encounter Goals Goal [...] as of this encounter Visit Diagnoses Diagnosis Pure hypercholesterolemia- Primary S/P coronary artery stent placement Postsurgical percutaneous transluminal coronary angioplasty status Ischemic cardiomyopathy Other specified forms of chronic ischemic heart disease S/P CABG x 3 Postsurgical aortocoronary bypass status Refractory angina pectoris documented in this encounter
--- OUTSIDE RECORDS SUMMARY | 2025-05-23 08:45 | XMS_ITS | Encounter Summary ---
Author Organization [facility] Address [address] [place] [address] Care Team Providers Care Regulatory Compliance Director Name Role Phone Provider, No Known Primary Care Provider Unavail able Reason for Visit * Reason Comments Flu Vaccine Encounter Details Date Type Department Care Team (Late st Contact Info) Description 05/23/2025 8:45 AM EDT Flu Shot [facility] [address] [phone] Need for influenza vaccination Social History Tobacco Use Types Packs/Day Years Used Date Smoking Tobacco: Never Assessed Abuse Screen Answer Date Recorded Unsafe at Home or Work/School Not on file Feels Threatened by Someone? Not on file Does Anyone Keep You from Co ntacting Others or Doint Things Outside the Home? Not on file 06/08/2023 Physical Sign of Abuse Present Not on file 1 Housing Stability Answer Date Recorded Current Living Arrangements Not on file 05/27 Potentially Unsafe Housing Conditions Not on kym e 06/08/2023 Family and Community Support Answer Ryan e Recorded Help with Day-to-Day Activities Not on file 06/08/2023 Lonely or Isolated Not on file 06/08/2023 Employment Answer Date Recorded Do you want help finding or keeping work or a sarah b? Not on file 06/08/2023 Disabilities Answer Date Recorded Concentrating, Remembering, or Making Decisions Difficulty Not on file 06/08/2023 Doing Errands Independently Difficulty Not on fi le 06/08/2023 Education Answer Date Recorded Help with school or training? Not on file Preferred Language Not on file 06/08/2023 Sex and Gender Information Value Date Recorded Sex Assigned at Not on file Legal Sex Male 3:10 PM EDT Gender Identity Not on file Sexual Orientation Not on file documented as of this encounter Plan of Treatment Not on file documented as of this encounter Visit Diagnoses Diagnosis Need for influenza vaccination Need for prophylactic vaccination and inoculation against influenza documented in this encounter Care Teams Regulatory Compliance Director Relationship Specialty Start Date End Date Provider, [place] [address] PCP - General 05/23/25 documented as of this encounter
--- OUTSIDE RECORDS SUMMARY | 2025-06-17 12:12 | XMS_ITS | Encounter Summary ---
Author Organization [place] [address] Care Team Providers Care Mat Packer Name Role Phone Unavailable Primary Care Provider Unavailabl e Reason for Visit * Echo (Routine) - Pending Review Specialty Diagnoses / Procedures Referred By Edward t Referred To Contact Radiology Diagnoses Ischemic cardiomyopathy Refractory angina pectoris Procedures EC ECHOCARDIOGRAM 2D M MODE COMPLETE W CONTRAST EC ECHOCARDIOGRAM COMPLETE W DOPPLER AND COLOR FLOW MAPPING Fabiano Mae MD [address] [place] [address] [place] [address] Phone: tel: fax: Referral ID Status Reason Start Date Expiration Date V isits Requested Visits Authorized [id number] Pending Review 05/07/2025 05/07/2027 1 1 Encounter Details Date Type Department Care Team (Latest Contact Info) Description 06/17/2025 12:12 PM EDT - 06/17/2025 11:59 PM EDT Hospital Encounter [facility] [address] [place] [address] [address] [place] [address] Fabiano Mae MD [address] [place] [address] [place] [address] Ischemic cardiomyopathy; Refractory angina pectoris Discharge Disposition: Home or Self Care Social [...] Date Recorded PHQ-2 Total Score 0 03/07/2021 [facility] - Occupational Stress [...] 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 03/19/20 24 Blood Sugar Diagnostic (ACCU-CHEK GUIDE TEST STRIPS) [facility] StripIndications:Type 2 diabetes mellitus with hyperglycemia, with long-term current use of insulin (HCC),Long-term insulin use (HCC) 1 Strip by [facility].(Non-Drug; Combo Route) route 2 times daily. 100 Each 11 03/03/20 25 Blood-Glucose Meter (ACCU-CHEK GUIDE GLUCOSE METER) [facility] MiscIndications:Type 2 diabetes mellitus with hyperglycemia, with long-term current use of insulin (HCC),Long-term insulin use (HCC) 1 Each by [facility].(Non-Drug; Combo Route) route continuous. 1 Each 03/03/20 25 cetirizine (ZYRTEC) 10 mg Oral Tablet Take 10 mg by mouth daily. 03/19/20 24 clopidogreL (PLAVIX) 75 mg Oral TabletIndications:S/P CABG x 3 Take 1 Tablet by mouth daily. 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 DEXCOM G7 SENSOR Misc Device Subcutaneous (Inject under the skin) 1 Each every 10 days. empagliflozin (JARDIANCE) 25 mg Oral TabletIndications:Type 2 diabetes mellitus with hyperglycemia, with long-term current use of insulin ([facility]),Hypertension associated with type 2 diabetes mellitus (HCC),Type 2 diabetes mellitus with hyperlipidemia (HCC),Long-term insulin use ([facility]),Coronary artery disease due to type 2 diabetes mellitus (HCC),Obesity, diabetes, and hypertension syndrome ([facility]),Peripheral sensory neuropathy due to type 2 diabetes mellitus (HCC),Vitamin D deficiency,Hypertension associated with diabetes (HCC),Type 2 diabetes mellitus with microalbuminuria, with long-term current use of insulin ([facility]),Type 2 diabetes with nephropathy ([facility]),Class 2 severe obesity with body mass index [...] to type 2 diabetes mellitus (HCC),Vitamin D deficiency,Hypertension associated with diabetes ([facility]),Type 2 diabetes mellitus with microalbuminuria, with long-term current use of insulin ([facility]),Type 2 diabetes with nephropathy ([facility]),Class 2 severe obesity with body mass index (BMI) of 35 to 39.9 with serious comorbidity,Type 2 diabetes mellitus with cardiac complication ([facility]) TAKE 2 CAPSULES BY MOUTH ONCE A WEEK 24 Capsule 3 05/01/20 25 evolocumab (REPATHA SURECLICK) 140 mg/mL SubQ Pen InjectorIndications:Dysl ipidemia Inject 1 mL under the skin every 14 days. 6 mL 3 05/07/20 25 ezetimibe (ZETIA) 10 mg Oral TabletIndications:Dyslip idemia Take 1 tablet by mouth once daily 90 Tablet 3 07/03/20 24 Insulin [place], Disposable, (CACHORRO PEN NEEDLE) 32 gauge x 5/32 [facility] NeedleIndications:Type 2 diabetes mellitus without complication, without long-term current use of insulin ([facility]) Subcutaneous (Inject under the skin) 1 Device once a week. 100 Each 05/07/20 25 isosorbide mononitrate (IMDUR) 30 mg Oral Tablet Sustained Release 24 hrIndications:Chest discomfort Take 1 tablet by mouth once daily 90 Tablet 1 12/12/19 25 Lancets (ACCU-CHEK SOFTCLIX LANCETS) [facility] MiscIndications:Type 2 diabetes mellitus with hyperglycemia, with long-term current use of insulin ([facility]),Long-term insulin use ([facility]) 1 Each by [facility].(Non-Drug; Combo Route) route 2 times daily. 100 Each 11 03/03/20 25 lisinopriL (PRINIVIL;ZESTRIL) 5 mg Oral Tablet Take 1 tablet by mouth once daily 100 Tablet 04/09/20 25 metoprolol succinate (TOPROL-XL) 50 mg Oral Tablet Sustained Release 24 hr Take 1 tablet by mouth once daily 100 Tablet 01/22/20 25 nitroGLYCERIN (NITROSTAT) 0.4 mg SL Tablet, SublingualIndications:Me dication refill Place 1 Tablet under the tongue every 5 minutes as needed for Chest pain. 100 Tablet 1 05/07/20 25 pantoprazole (PROTONIX) 40 mg Oral Tablet, Delayed Release (E.C.)Indications:Chest discomfort,S/P coronary artery stent placement,Ischemic cardiomyopathy,Pure hypercholesterolemia Take 1 tablet by mouth once daily 100 Tablet 1 12/18/19 25 pioglitazone (ACTOS) 30 mg Oral TabletIndications:Type 2 diabetes mellitus with cardiac complication (HCC) Take 1 Tablet by mouth daily. 90 Tablet 3 07/10/20 24 Ranolazine 1,000 mg Oral Tablet Sustained Release 12 hrIndications:Ischemic cardiomyopathy,Pure hypercholesterolemia,Elsa st discomfort,S/P coronary artery stent placement Take 1 Tablet by mouth 2 times daily. 180 Tablet 1 05/07/20 25 semaglutide (OZEMPIC) 2 mg/dose (8 mg/3 mL) SubQ Pen InjectorIndications:Type 2 diabetes mellitus with hyperglycemia, with long-term current use of insulin (HCC),Hypertension associated with type 2 diabetes mellitus (HCC),Type 2 diabetes mellitus with hyperlipidemia (HCC),Long-term insulin use (HCC),Coronary artery disease due to type 2 diabetes mellitus (HCC),Obesity, diabetes, and hypertension syndrome ([facility]),Peripheral sensory neuropathy due to type 2 diabetes mellitus ([facility]),Vitamin D deficiency,Hypertension associated with diabetes ([facility]),Type 2 diabetes mellitus with microalbuminuria, with long-term current use of insulin ([facility]),Type 2 diabetes with nephropathy ([facility]),Class 2 severe obesity with body mass index (BMI) of 35 to 39.9 with serious comorbidity,Type 2 diabetes mellitus with cardiac complication (HCC) INJECT 2MG SUBCUTANEOUSLY ONCE WEEKLY DIRECTED 9 mL 2 05/01/20 25 sertraline (ZOLOFT) 100 mg Oral TabletIndications:Major depressive disorder with single episode, in full remission Take 1 Tablet by mouth daily. 90 Tablet 3 01/11/20 22 HUMALOG KWIKPEN INSULIN 100 unit/mL SubQ Insulin Pen INJECT 30 UNITS SUBCUTANEOUSLY ONCE DAILY IN DIVIDED DOSES DIRECTED 30 mL 04/02/20 25 025 LANTUS SOLOSTAR U-100 INSULIN 100 unit/mL (3 mL) SubQ Insulin PenIndications:Type 2 diabetes mellitus with cardiac complication (HCC),Type 2 diabetes mellitus with hyperglycemia, with long-term current use of insulin (HCC),Hypertension associated with type 2 diabetes mellitus (HCC),Type 2 diabetes mellitus with hyperlipidemia (HCC) INJECT 45 UNITS SUBCUTANEOUSLY ONCE DAILY 45 mL 03/16/20 25 025 documented as of this encounter Discharge Disposition Disposition Code Departure Means Destination Home or Self Care documented in this encounter Plan of Treatment Upcoming Encounters Date Type Department Care Team (Late st Contact Info) Description 10/30/2025 12:40 PM EST Office Visit [facility] [place] [address] [facility] [address] [place] [phone] Edwardo Urbano APRN [address] [place] [address] 10/30/2025 1:30 PM EST Office Visit [facility] [address] [place] [address] Rayne Trimble APRN [address] [employer], [place] [id number] documented as of this encounter Goals Goal [...] Procedure Name Priority Date/Time Associated Diagnosis Comments EC ECHOCARDIOGRAM 2D M MODE COMPLETE W CONTRAST Routine 06/17/2025 1:14 PM EDT Ischemic cardiomyopathy Refractory angina pectoris documented in this encounter Results * EC ECHOCARDIOGRAM 2D M MODE COMPLETE W CONTRAST (06/17/2025 1:14 PM EDT) Ejection Fraction 60-65% PYRAMIS MITRAL REGURGITATION mild PYRAMIS AORTIC STENOSIS no PYRAMIS LV DIASTOLIC PLAX 5.21 cm PYRAMIS Anatomical Region Laterality Modality Electrocardiogra phy 06/17/2025 12:1 8 PM EDT Impressions 06/17/2025 5:05 PM EDT Conclusions * Left ventricular chamber dimension is normal. * Left ventricular function is normal with an estimated ejection fraction of 60-65%. * Left ventricular segmental wall motion is normal. * There is mildly increased left ventricular wall thickness. * Right ventricular systolic function is normal. * Estimated pulmonary artery systolic pressure is 25 mmHg. * There is mild mitral valve regurgitation. * There is mild tricuspid valve regurgitation. Narrative Procedure Note Fabiano Mae MD - 06/17/2025 IMPRESSION Conclusions * Left ventricular chamber dimension is normal. * Left ventricular function is normal with an estimated ejectionfraction of 60-65%. * Left ventricular segmental wall motion is normal. * There is mildly increased left ventricular wall thickness. * Right ventricular systolic function is normal. * Estimated pulmonary artery systolic pressure is 25 mmHg. * There is mild mitral valve regurgitation. * There is mild tricuspid valve regurgitation. Fabiano Mae MD IMG ECHO ORDERABLES Fin al Result documented in this encounter Visit Diagnoses Diagnosis Ischemic cardiomyopathy Other specified forms of chronic ischemic heart disease Refractory angina pectoris documented in this encounter Administered Medications Inactive Administered Medications - up to 1 most recent administrations Medication Order MAR Action Action Date Dose Rate Site perflutren lipid microspheres (DEFINITY) 1.3 mL in sodium chloride 0.9% 10 mL injection 10 mL, Injection, ONCE, 1 dose, On Sun06/17/25 at 1245, Bring vial to room temperature. Shake for 45 seconds using VialWantful apparatus. FIRST withdraw 8.7 mL of 0.9% NaCl into a 10-mL syringe. SECOND, vent the activated vial using an 18- or 20-gauge needle tip. THIRD, attach second 18- or 20-gauge needle to 10-ml syringe and insert in vial. Invert vial, and slowly withdraw 1.3 ml activated product. Do NOT inject air into vial. Gently hand agitate then administer ordered dose. VESICANT , Echo Meds Given 06/17/2025 12:45 PM EDT 2 mL sodium chloride 0.9% syringe Intravenous, EVERY 12 HOURS SCHEDULED (2 times per day), First dose on Sun06/17/25 at 1245, Until Discontinued, Flush with 3-5 mL saline for PERIPHERAL saline lock maintenance. Given 06/17/2025 12:45 PM EDT documented in this encounter Orders Medications Ordered That Mynor ht Not Have Been Administered Count Last Ordered Date First Ordered Date sodium chloride 0.9% syringe 1 06/17/2025 documented in this encounter
[2025-06-23 19:18] LABS: Hematocrit 44.5 % (42.0-52.0); Hemoglobin 14.7 g/dL (14.1-18.0); Immature Granulocytes % 0.2 %; Mean Corpuscular HGB Conc 33.0 g/dL (31.8-35.4); Mean Corpuscular Hemoglobin 30.7 pg (27.0-31.2); Mean Corpuscular Volume 92.9 fl (80-94); Nucleated Red Blood Cells % 0 %; Platelet Count 270 K/mm3 (142-424); Red Blood Count 4.79 M/mm3 (4.60-6.20); Red Cell Distribution Width-SD 45.2 fL; White Blood Count 6.5 K/mm3 (4.8-10.8)
[2025-06-23 20:07] LABS: Alanine Aminotransferase 27 U/L (12-78); Alkaline Phosphatase 209 U/L (38-126); Anion Gap 11.8 mEq/L (5-15); Aspartate Amino Transferase 25 U/L (17-59); Bilirubin,Total 0.5 mg/dl (0.2-1.3); Blood Urea Nitrogen 15 mg/dl (9-20); Calcium 9.0 mg/dl (8.4-10.2); Carbon Dioxide 27 mmol/L (22.0-30.0); Chloride 104 mmol/L (98-107); Cholesterol 101 mg/dl (140-200); Creatinine,Serum 0.80 mg/dl (0.66-1.25); Estimated Glomerular Filt Rate 100 ml/min (>60); GFR (African American) 121 ML/MIN (>60); Glucose 149 mg/dl (74-100); HDL Cholesterol 61 mg/dl (40-60); Potassium 3.8 mmoL/L (3.5-5.1); Sodium 139 mmol/L (136-145); Total Protein,Serum 6.7 g/dl (6.3-8.2); Triglycerides 109 mg/dl (30-150)
[2025-06-23 20:09] LABS: Albumin Level 3.1 g/dl (3.5-5.0); Albumin/Globulin Ratio 0.9 (1.1-1.8); Globulin 3.6 g/dL (1.3-3.2)
[2025-06-23 20:38] LABS: Thyroid Stimulating Hormone 0.94 uIU/mL (0.465-4.68)
[2025-06-23 21:13] LABS: Hemoglobin A1C 6.1 % (4.0-6.0)
--- OUTSIDE RECORDS SUMMARY | 2025-06-24 11:53 | XMS_ITS | Encounter Summary ---
Author Organization [place] [address] Care Team Providers Care Sand Temperer Name Role Phone Unavailable Primary Care Provider Unavailabl e Reason for Visit * Reason Onset Date Comments Medication Refill 06/18/2025 Encounter Details Date Type Department Care Team (Late st Contact Info) Description 06/18/2025 Refill [facility] [place] [address] [facility] [address] [place] [phone] Edwardo Urbano, GUANACO [address] [place] [address] Medication Refill Social History Tobacco Use Types Packs/Day Years [...] Date Recorded PHQ-2 Total Score 0 03/07/2021 [facility] Occupat ional Health - Occupational Stress [...] 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 Not [...] Entry Date Author No 09/17/2018 9:34 AM Skey Boss RN documented in this encounter Ordered Prescriptions Prescription Sig Dispense Quantity Refills Last Filled Start Date End Date HUMALOG KWIKPEN INSULIN 100 unit/mL SubQ Insulin Pen INJECT 30 UNITS SUBCUTANEOUSLY ONCE DAILY IN DIVIDED DOSES DIRECTED 30 mL 1 LANTUS SOLOSTAR U-100 INSULIN 100 unit/mL (3 mL) SubQ Insulin PenIndications:Type 2 diabetes mellitus with cardiac complication (HCC),Type 2 diabetes mellitus with hyperglycemia, with long-term current use of insulin (HCC),Hypertension associated with type 2 diabetes mellitus (HCC),Type 2 diabetes mellitus with hyperlipidemia (HCC) INJECT 45 UNITS SUBCUTANEOUSLY ONCE DAILY 45 mL 1 documented in this encounter Miscellaneous Notes * Telephone Encounter - Ping Napoles CPhT - 06/20/2025 8:37 AM EDT Insulin Glargine Future Visit: 10-30-25 Last Assessed Visit: 05-01-25 Follow-Up: 10-29-25 All protocols passed. Refills approved and sent to requesting pharmacy. Routed to PN Pool if an appointment is needed. Insulin Lispro Future Visit: 10-30-25 Last Assessed Visit: 05-01-25 Follow-Up: 10-29-25 All protocols passed. Refills approved and sent to requesting pharmacy. Routed to PN Pool if an appointment is needed. documented in this encounter Plan of Treatment Upcoming Encounters Date Type Department Care Team (Late st Contact Info) Description 10/30/2025 12:40 PM EST Office [facility] [place] [address] [phone] Edwardo Urbano APRN [address] [place] [address] 10/30/2025 1:30 PM EST Office Visit [facility] [address] [place] [address] Rayne Trimble APRN [address] [place] [address] documented as of this encounter Goals Goal [...] Diagnoses Diagnosis Type 2 diabetes mellitus with cardiac complication (HCC) Type 2 diabetes mellitus with hyperglycemia, with long-term current use of insulin (HCC) Hypertension associated with type 2 diabetes mellitus (HCC) Type 2 diabetes mellitus with hyperlipidemia (HCC) documented in this encounter Discontinued Medications Medication Sig Discontinue Reason Start Date End Da te LANTUS SOLOSTAR U-100 INSULIN 100 unit/mL (3 mL) SubQ Insulin PenIndications:Type 2 diabetes mellitus with cardiac complication (HCC),Type 2 diabetes mellitus with hyperglycemia, with long-term current use of insulin (HCC),Hypertension associated with type 2 diabetes mellitus (HCC),Type 2 diabetes mellitus with hyperlipidemia (HCC) INJECT 45 UNITS SUBCUTANEOUSLY ONCE DAILY Reorder 03/16/2025 06/18/2025 HUMALOG KWIKPEN INSULIN 100 unit/mL SubQ Insulin Pen INJECT 30 UNITS SUBCUTANEOUSLY ONCE DAILY IN DIVIDED DOSES DIRECTED Reorder 04/02/2025 06/18/2025 documented as of this encounter
--- OUTSIDE RECORDS SUMMARY | 2025-06-24 11:53 | XMS_ITS | Encounter Summary ---
Author Organization [place] [address] Care Team Providers Care Resource Management Specialist Name Role Phone Unavailable Primary Care Provider Unavailabl e Reason for Visit * Reason Onset Date Comments Medication Refill 06/18/2025 Encounter Details Date Type Department Care Team (Late st Contact Info) Description 06/18/2025 Refill [facility] [address] [place] [address] Boris Will MD Medication Refill Social History Tobacco Use Types [...] Date Recorded PHQ-2 Total Score 0 03/07/2021 [facility] [place] Occupat ional Health - Occupational Stress [...] 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 manager baby Reason: Patient is not attributed to a PCP in this office documented in this encounter Plan of Treatment Upcoming Encounters Date Type Department Care Team (Late st Contact Info) Description 10/30/2025 12:40 PM EST Office Visit [address] [phone] Edwardo Urbano APRN [address] [place] [address] 10/30/2025 1:30 PM EST Office Visit [facility] [place] [address] [place] [id number] Rayne Trimble APRN [address] [place] [address] documented as of this encounter Goals Goal Patient Goal Type Associated Problems Recent Progress Patient-Stated? Author Blood Pressure < 140/90 Blood Pressure 106/56(05/07 1:00 PM EDT) No Trudy Lewis RMA BMI (Calculated) < 30 General 37.6( 025 1:00 PM EDT) No Trudy Lewis, ARNEL Eat better, exercise, reach an ideal body [...] as of this encounter Visit Diagnoses Diagnosis Major depressive disorder with single episode, in full remission documented in this encounter
--- OUTSIDE RECORDS SUMMARY | 2025-06-24 11:54 | XMS_ITS | Data Portability ---
Author Organization [facility] & [place] [facility] Address [address] [place] [phone] Assessment No assessment recorded. Plan of Treatment Reminders Order Date Submit Date Provider Last Modified By Organization Details Last Modified Time Details Appointments None recorded. Lab urinalysis , dipstick [address] [facility], [address] [place] [address], [address], [place], [address], 16:20:06 urinalysis , dipstick [address] [facility], [address] [place] [address], [address], [place], [address], 15:48:58 culture, urine 2021 [facility], [address] [place] [address], [address], [place], [address], 10:26:13 Referral None recorded. Procedures None recorded. Surgeries None recorded. Imaging US, renal 2021 [facility] (Centralized Scheduling), [address] [place], [address], 16:15:29 Medication Orders oxybutynin chloride ER 10 mg tablet,ext ended release 24 hr 2021 [facility], [address], [address], 03:39:32 cefdinir 300 mg capsule 2021 022 [facility], [address], [address], 15:26:28 Patient TargetsNo targets recorded. Patient InstructionsNo instructions recorded. Reason for Referral None Reported. Results Created Date Observation Date Name Description Value Unit Range Abnormal Flag Note LastModifiedBy Organization Detail LastModifiedTime 05/25/20 22 05/25/2022 urina lysis , dipst ick Leukocytes (reference range) trace Not Available [address], [address], 05/25/2022 14:59:34 05/25/20 22 05/25/2022 urina lysis , dipst ick Nitrite (reference range:) negati ve Not Available [address], [address], 05/25/2022 14:59:34 05/25/20 22 05/25/2022 urina lysis , dipst ick Urobilinogen (reference range) 0.2 Not Available [facility] [address], [address], 05/25/2022 14:59:34 05/25/20 22 05/25/2022 urina lysis , dipst ick Protein (reference range) negati ve Not Available [address], [address], 05/25/2022 14:59:34 05/25/20 22 05/25/2022 urina lysis , dipst ick pH (reference range 5-8.5) 6.5 Not Available [facility]le [facility] [address], [address], 05/25/2022 14:59:34 05/25/20 22 05/25/2022 urina lysis , dipst ick Blood (reference range:) modera te Not Available [address], [place], [address], 05/25/2022 14:59:34 05/25/20 22 05/25/2022 urina lysis , dipst ick Specific [place] (reference range) 1.020 Not Available [address] [address], [place], [address], 05/25/2022 14:59:34 05/25/20 22 05/25/2022 urina lysis , dipst ick Ketone (reference range) small Not Available [address] [address], [place], [address], 05/25/2022 14:59:34 05/25/20 22 05/25/2022 urina lysis , dipst ick Bilirubin (reference range) negati ve Not Available [address] [address], [place], [address], 05/25/2022 14:59:34 05/25/20 22 05/25/2022 urina lysis , dipst ick Glucose (reference range) 250 Not Available [address] [address], [place], [address], 05/25/2022 14:59:34 05/25/20 22 05/25/2022 urina lysis , dipst ick Color (reference range: yellow-brown ) Yellow Not Available [address] [address], [place], [address], 05/25/2022 14:59:34 07/11/20 22 07/11/2022 urina lysis , dipst ick Leukocytes (reference range) negati ve Not Available [place] [address], [place], [address], 07/11/2022 15:25:56 07/11/20 22 07/11/2022 urina lysis , dipst ick Nitrite (reference range:) negati ve Not Available [facility] [address] [place] [address] [address], [place], [address], 07/11/2022 15:25:56 07/11/20 22 07/11/2022 urina lysis , dipst ick Urobilinogen (reference range) 0.2 Not Available [facility] [address] [place] [address] [address], [place], [address], 07/11/2022 15:25:56 07/11/20 22 07/11/2022 urina lysis , dipst ick Protein (reference range) negati ve Not Available [address], [place], [address], 07/11/2022 15:25:56 07/11/20 22 07/11/2022 urina lysis , dipst ick pH (reference range 5-8.5) 6.0 Not Available [facility] [address] [place] [address] [address], [place], [address], 07/11/2022 15:25:56 07/11/20 22 07/11/2022 urina lysis , dipst ick Blood (reference range:) negati ve Not Available [facility] [address] [place] [address] [address], [place], [address], 07/11/2022 15:25:56 07/11/20 22 07/11/2022 urina lysis , dipst ick Specific [place] (reference range) 1.015 Not Available [facility] [place] [address] [place] [address] [address], [place], [address], 07/11/2022 15:25:56 07/11/20 22 07/11/2022 urina lysis , dipst ick Ketone (reference range) negati ve Not Available [facility] [address] [place] [address] [address], [place], [address], 07/11/2022 15:25:56 07/11/20 22 07/11/2022 urina lysis , dipst ick Bilirubin (reference range) negati ve Not Available [facility] [address] [place] [address] [address], [place], [address], 07/11/2022 15:25:56 07/11/20 22 07/11/2022 urina lysis , dipst ick Glucose (reference range) negati ve Not Available [facility] [address] [place] [address] [address], [place], [address], 07/11/2022 15:25:56 07/11/2007/11/2022 urina lysis , dipst ick Color (reference range: yellow-brown ) Yellow Not Available [facility] [address] [place] [address] [address], [place], [address], 07/11/2022 15:25:56 Result Notes None recorded. Problems Name Problem SNOMED Code Status Onset Date Resolution Date Notes Provider Name and Address Organization Details Recorded Time Heart failure 35534930 Active Debo Crase null, [place] - [facility] [place] [facility] [place] 11:16:13 Recurrent urinary tract infection 512463154 Active Debo Crase [place], [place] [facility] [place] [facility] [place] 11:16:31 Nocturia 583273174 Active Debo Crase null, [place] - [facility] [place] [facility] [place] 11:16:37 Dysuria 62136331 Active Debo Crase null, [place] - [facility] [place] [facility] [place] 11:16:47 Diabetes mellitus 49604111 Active 022 ERICA Walker [facility] & [place] 2 11:16:58 Problem Notes None recorded. Medical Equipment None Reported. Allergies Allergen ID Allergen Name Allergen Category Reaction Reaction Severity Criticality Documentation Date Start Date Code Code System Note Provider Name and Address Organization Details Recorded Time metformin medicatio n Not available Not available Not available 05/25/2022 6809 RxNorm ERICA Walker [facility] & [place] 2 14:38:01 Medications Name Sig Start Date Stop Date Status Note LastModified by Organization Details LastModified Time fluconazole 100 mg tablet TAKE 1 TABLET BY MOUTH ONCE DAILY FOR 14 DAYS active Not Available Not Available No t Available oxybutynin chloride ER 10 mg tablet,exte nded release 24 hr Take 1 tablet every day by oral route for 30 days. active Not Available Not Available No t Available fluconazole 150 mg tablet TAKE 1 TABLET BY MOUTH A ONE TIME DOSE active Not Available Not Available No t Available hydrocodone 5 mg-acetamin ophen 325 mg tablet active Not Available Not Available No t Available phenazopyri dine 200 mg tablet TAKE 1 TABLET BY MOUTH THREE TIMES DAILY active Not Available Not Available No t Available isosorbide mononitrate ER 30 mg tablet,exte nded release 24 hr TAKE 1 TABLET BY MOUTH ONCE DAILY IN THE MORNING active Not Available Not Available No t Available sertraline 100 mg tablet TAKE 1 TABLET BY MOUTH ONCE DAILY active Not Available Not Available No t Available pioglitazon e 45 mg tablet TAKE 1 TABLET BY MOUTH ONCE DAILY active Not Available Not Available No t Available clopidogrel 75 mg tablet TAKE 1 TABLET BY MOUTH ONCE DAILY active Not Available Not Available No t Available pantoprazol e 40 mg tablet,luzma yed release TAKE 1 TABLET BY MOUTH ONCE DAILY active Not Available Not Available No t Available nystatin 100,000 unit/gram topical cream APPLY CREAM TOPICALLY TWICE DAILY FOR 14 DAYS active Not Available Not Available No t Available lisinopril 10 mg tablet TAKE 1 TABLET BY MOUTH ONCE DAILY active Not Available Not Available No t Available nitroglycer in 0.[address] by sublingua l route. active Not Available Not Available No t Available metoprolol succinate ER 25 mg tablet,exte nded release 24 hr TAKE 1/2 (ONE HALF) TABLET BY MOUTH ONCE DAILY 05/25 completed Not Available Not Available Not Available ergocalcife rol (vitamin D2) 1,250 mcg (50,000 unit) capsule TAKE 1 CAPSULE BY MOUTH TWICE A WEEK ON SUNDAY AND SUNDAY active Not Available Not Available No t Available levofloxaci n 500 mg tablet TAKE 1 TABLET BY MOUTH ONCE DAILY active Not Available Not Available No t Available cefdinir 300 mg capsule Take 1 capsule every 12 hours by oral route for 10 days. active Not Available Not Available No t Available insulin lispro (U-100) 100 unit/mL subcutaneou s pen USE DIRECTED UP TO 30 UNITS DAILY IN DIVIDED DOSES DIRECTED active Not Available Not Available No t Available Asprin Ec Low Dose 81 mg tablet,luzma yed release Take 1 tablet every day by oral route. active Not Available Not Available No t Available ezetimibe 10 mg tablet TAKE 1 TABLET BY MOUTH ONCE DAILY active Not Available Not Available No t Available metoprolol tartrate 25 mg tablet TAKE 1 TABLET BY MOUTH TWICE DAILY active Not Available Not Available No t Available ranolazine ER 500 mg tablet,exte nded release,12 hr TAKE 1 TABLET BY MOUTH EVERY 12 HOURS active Not Available Not Available No t Available FreeStyle Lite Meter kit USE THREE TIMES DAILY active Not Available Not Available No t Available FreeStyle Lite Strips USE 1 STRIP TO CHECK GLUCOSE THREE TIMES DAILY active Not Available Not Available No t Available Tresiba FlexTouch U-100 insulin 100 unit/mL (3 mL) subcutaneou s pen INJECT 20 UNITS SUBCUTANE OUSLY NIGHTLY active Not Available Not Available No t Available Ozempic 1 mg/dose (4 mg/3 mL) subcutaneou s pen injector INJECT 1 MG SUBCUTANE OUSLY ONCE A WEEK DIRECTED active Not Available Not Available No t Available Vitals None Recorded Social History None recorded. Functional Status Question Answer Note LastModified by Organizat ion Details LastModified Time Do you use any illicit or recreational drugs? No Information not available 05/19/2022 What is your level of alcohol consumption? None Information not available 05/19/2022 Mental Status None recorded. Family History Nothing Reported Notes:Mother-Heart Attack Fa ther- heart attack, triple bypass () Brother-Heart attack Medical History Condition Response Diabetes Y Heart Disease Y Depression Y Past Encounters Encounter ID Performer Location Encounter Start Date Encounter Closed Date Diagnosis/Indication Diagnosis SNOMED-CT Code Diagnosis ICD10 Code Diagnosis IMO Codes Diagnosis Note [id number] Lizy Puga NP, S [facility] [address] [place] [address],[facility] [address] [place] [phone] 05/25/2022 14:05:26 05/25/2022 15:17:37 Recurrent urinary tract infection 542399002 N39.0 UA positive for leukocytes . Send for culture and sensitivit y.Start Cefdinir 300mg bidPVR 30mlRTC in 3 weeks for f/u with UA Nocturia 380730956 R35.1 Dysuria 71282897 R30.9 History of diabetes mellitus 111205503 Z86.39 [id number] Lizy Puga NP, S [facility] [address] [place] [address],[facility] [address] [place] [phone] 07/11/2022 15:00:12 07/11/2022 16:02:09 Dysuria 64402578 R30.9 UA negativePV R 50mlStart Oxybutynin 10mg dailyRenal US r/t UTIs and nocturiaRT C in 6 weeks for f/u of diagnostic test results and Oxybutynin ttx Urgent robyn noy to urinate 59324008 R39.15 Increased frequency of urination 908181251 R35.0 History of urinary tract infection 2088383026 107 Z87.440 Nocturia 265536554 R35.1 Health Concerns Section Related Observation LastModified by Organization Detai ls LastModified Time None Recorded Concern Status LastModified by Organization Details LastModified Time None Recorded Advance Directives Directive None Recorded Payers Insurance Date Sequence Insurance Name Policy Number Policy Grimes Covered Member ID Grimes Member ID Guarantor Name 09/02/2022 1 [facility] ([facility] [facility]AC[facility] - [place] Geovanny Marquez [id number] Geovanny Marquez Notes Date Note Type Note Provider Name and Address Organization Details Recorded Time 05/25/2022 text/html 51 yowm Presents to clinic for ER f/u. Patient went to for further evaluation of painful urination as well as gross hematuria. Patient was diagnosed with a urinary tract infection and was treated with Levaquin once daily for [address] scan of abdomen pelvis without contrast revealed hydronephrosis, thickening of urinary bladder. Patient reports he has had 2 other UTIs in the past. Reports currently he is experiencing some painful and burning with urination as well as some lower abdominal pain. He denies any gross hematuria. States urinary stream is good. Nocturia x2. Recent PSA was 3.3 on 05/11/2022. Patient has a longstanding history of coronary artery disease and is on chronic anticoagulation with Plavix daily. Patient's insulation power unit tender is Dr. Gui Llanos in [facility]. patient had his 1st VT in 2009, has underwent numerous stent placements as well a triple bypass. reports 1 history of hematospermia 3-4 years ago. Denies any history of kidney stones. Patient is a diabetic, states blood sugars run around 160s. Lizy Puga NP, [address] [facility], [place], [address], [facility] - [place] & [place] 05/25/2022 15:27:40 07/11/2022 text/html 51 yowm RTC for f/u of UTI. Patient was last seen on 05/25/2022, urinalysis at this time was positive for leukocytes. Patient was treated with cefdinir 300 mg b.i.d.. Culture from 05/25/2022 was negative. Patient went to [facility] on 04/25/2022 for further evaluation of painful urination.Patient was diagnosed with a urinary tract infection and was treated with Levaquin once daily for 7 days. Patient reports he has had 2 other UTIs in the past. Reports currently he is experiencing some painful and burning with urination. He denies any gross hematuria. States urinary stream is good. Nocturia x2. reports he experiences urinary urgency/frequency. Patient reports he will urinate at least every 1-2 hours. Has not tried any medications for this. Recent PSA was 3.3 on 05/11/2022. Patient has a longstanding history of coronary artery disease and is on chronic anticoagulation with Plavix daily. Patient's insulation power unit tender is Dr. Gui Llanos in [facility]. patient had his 1st VT in 2009, has underwent numerous stent placements as well a triple bypass. reports 1 history of hematospermia 3-4 years ago. Denies any history of kidney stones. Patient is a diabetic. Denies any h/o glaucoma. Lizy Puga, [place], [address], [place], [address], [facility] - [place] & [place] 07/11/2022 16:14:49
--- OUTSIDE RECORDS SUMMARY | 2025-06-24 11:54 | XMS_ITS | Encounter Summary ---
Author Organization [place] [address] Care Team Providers Care Donor Center Technician Name Role Phone Unavailable Primary Care Provider Unavailabl e Encounter Details Date Type Department Care Team (Latest Contact Info) Description 06/17/2025 Results Follow-Up [facility] [address] [place] [address] Fabiano Mae MD [address] [place] [address] EC ECHOCARDIOGRAM 2D M MODE COMPLETE W CONTRAST Social History Tobacco Use Types Packs/Day Years [...] Date Recorded PHQ-2 Total Score 0 03/07/2021 [facility] [place] of Occupat ional [facility] - Occupational Stress Questionnaire Answer Date [...] 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 Author Blood Pressure < 140/90 Blood Pressure 106/56(05/07 1:00 PM EDT) No Trudy Lewis RMA BMI (Calculated) < 30 General 37.6( 025 1:00 PM EDT) No Trudy Lewis, ARNEL Eat better, exercise, reach an ideal body weight General No Pao Daigle, MEDIA ANALYTICS MANAGER Patient will check blood sugar twice daily [...]
--- OUTSIDE RECORDS SUMMARY | 2025-06-24 11:54 | XMS_ITS | Encounter Summary ---
Author Organization [facility] [place] [address] Care Team Providers Care Research Engineer Name Role Phone Unavailable Primary Care Provider Unavailabl e Reason for Visit * Reason Onset Date Comments Medication Refill 05/06/2025 Encounter Details Date Type Department Care Team (Late st Contact Info) Description 05/06/2025 Refill [facility] [address] [place] [address] Fabiano Mae MD [address] [place] [id number] Medication Refill Social History Tobacco Use Types [...] Date Recorded PHQ-2 Total Score 0 03/07/2021 [facility] [place] of Occupat ional Health - Occupational Stress [...] 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 100 Tablet 1 05/07/2025 Ranolazine 1,000 mg Oral Tablet Sustained Release 12 hrIndications:Isch emic cardiomyopathy,Pur e hypercholesterolem ia,Chest discomfort,S/P coronary artery stent placement Take 1 Tablet by mouth 2 times daily. 180 Tablet 1 05/07/2025 documented in this encounter Plan of Treatment Upcoming Encounters Date Type Department Care Team (Late st Contact Info) Description 10/30/2025 12:40 PM EST Office Visit [facility] [place] [address] [facility] [address] [place] [phone] Edwardo Urbano, COMMERCIAL SUBCONTRACTOR [address] [place] [address] [place] [address] 10/30/2025 1:30 PM EST Office Visit [facility] [place] [address] [place] [address] Rayne Trimble APRN [address] [place] [address] documented as of this encounter Goals Goal Patient Goal Type Associated Problems Recent Progress Patient-Stated? Author Blood Pressure < 140/90 Blood Pressure 106/56(05/07 1:00 PM EDT) No Trudy Lewis, ARNEL BMI (Calculated) < 30 General 37.6( 025 [...] as of this encounter Visit Diagnoses Diagnosis Ischemic cardiomyopathy Other specified forms of chronic ischemic heart disease Pure hypercholesterolemia Chest discomfort Other chest pain S/P coronary artery stent placement Postsurgical percutaneous transluminal coronary angioplasty status Medication refill Issue of repeat prescriptions documented in this encounter Discontinued Medications Medication Sig Discontinue Reason Start Date End Da te Ranolazine 1,000 mg Oral Tablet Sustained Release 12 hrIndications:Ischemic cardiomyopathy,Pure hypercholesterolemia,Elsa st discomfort,S/P coronary artery stent placement TAKE 1/2 (ONE-HALF) BY MOUTH TWICE DAILY Reorder 09/09/2024 05/06/2025 nitroGLYCERIN (NITROSTAT) 0.4 mg SL Tablet, SublingualIndications:Me dication refill Place 1 Tablet under the tongue every 5 minutes as needed for Chest pain. Reorder 12/05/2024 05/06/2025 documented as of this encounter
--- OUTSIDE RECORDS SUMMARY | 2025-06-24 11:54 | XMS_ITS | Encounter Summary ---
Author Organization [place] [address] Care Team Providers Care Law Firm Partner Name Role Phone Unavailable Primary Care Provider Unavailabl e Reason for Visit * Reason Onset Date Comments Medication Refill 05/06/2025 Encounter Details Date Type Department Care Team (Late st Contact Info) Description 05/06/2025 Refill [facility] [place] [address] [facility] [address] [place] [phone] Edwardo Urbano, GUANACO [address] [facility] [place] [address] Medication Refill Social [...] Date Recorded PHQ-2 Total Score 0 03/07/2021 [facility] [place] of Occupat ional Health - Occupational Stress [...] 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 6 mL 3 05/07/2025 documented in this encounter Miscellaneous Notes * Telephone Encounter - Sandra Cadena MA - 05/07/2025 8:09 AM EDT Test strips 30 day prescription with 11 refills sent to [facility] 03/03/2025 Ezetimibe 90 day prescription with 3 refills sent to [facility] 07/03/2024 Lancets 30 day prescripton with 11 refills sent to [facility] 03/03/2025 Pioglitazone 90 day prescription with 3 refills sent to [facility] on 2025. documented in this encounter Plan of Treatment Upcoming Encounters Date Type Department Care Team (Late st Contact Info) Description 10/30/2025 12:40 PM EST Office Visit [facility] [place] [address] [facility] [address] [place] [address] Edwardo Urbano APRN [address] [place], [place] [id number] 10/30/2025 1:30 PM EST Office Visit [facility] [place] [address] [place] [address] Rayne Trimble APRN [address] [place] [address] documented as of this encounter Goals Goal [...] as of this encounter Visit Diagnoses Diagnosis Dyslipidemia Other and unspecified hyperlipidemia Type 2 diabetes mellitus with cardiac complication (HCC) Type 2 diabetes mellitus with hyperglycemia, with long-term current use of insulin (HCC) Long-term insulin use (HCC) Encounter for long-term (current) use of insulin documented in this encounter Discontinued Medications Medication Sig Discontinue Reason Start Date End Da te evolocumab (REPATHA SURECLICK) 140 mg/mL SubQ Pen InjectorIndications:D yslipidemia Subcutaneous (Inject under the skin) 1 mL every 14 days. Reorder 09/25/2024 05/06/2025 documented as of this encounter
--- OUTSIDE RECORDS SUMMARY | 2025-06-24 11:54 | XMS_ITS | Encounter Summary ---
Author Organization [place] [address] Care Team Providers Care Field Support Engineer Name Role Phone Unavailable Primary Care Provider Unavailabl e Reason for Visit * Reason Onset Date Comments Medication Refill 05/06/2025 Encounter Details Date Type Department Care Team (Late st Contact Info) Description 05/06/2025 Refill [facility] [address] [place] [address] Boris Will MD Medication Refill [...] Date Recorded PHQ-2 Total Score 0 03/07/2021 [facility] [place] [facility] - Occupational Stress [...] 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 Not [...] 12:40 PM EST Office Visit [facility] [address] [place] [address] Edwardo Urbano APRN [address] [place] [address] 10/30/2025 1:30 PM EST Office Visit [facility] [id number] [place] [address] Rayne Trimble APRN [address] [id number] documented as of this encounter Goals Goal [...] 6(05/01/2025 1:31 PM EDT) No Trudy Lewis Hilario documented as of this encounter Visit Diagnoses Diagnosis Major depressive disorder with single episode, in full remission documented in this encounter
--- OUTSIDE RECORDS SUMMARY | 2025-06-24 11:54 | XMS_ITS | Clinical Summary ---
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 shortens red cell survival, such as hemolytic anemia, or unstable hemoglobin variants such as HbSS, HbSC, or HbCC, will lower the HbA1c value associated with a given level of glycemic control. Edwardo Urbano SCHOOL AGE PROGRAM TEACHER CHEMISTRY ORDERABL ES Final Result [facility] [address] [facility] , [place] [address] * (ABNORMAL) COMPREHENSIVE METABOLIC PANEL [...] 3:36 PM EDT [facility] Bili Total 0.4 0.2 - 1.4 mg/dL 05/01/2025 3:36 PM EDT [facility], [facility] ALT 19 <=41 U/L 05/01/2025 3:36 PM EDT [facility] AST 16 <=40 U/L 05/01/2025 3:36 PM EDT [facility] Alk Phos 167(H) 40 - 129 U/L 05/01/2025 3:36 PM EDT [facility], [facility] eGFR (CKD-EPIcr 2020) 110 >=60 mL/min/1.7 3 m2 05/01/2025 3:36 PM EDT [facility] Comment:Estimated GFR was ca lculated using the CKD-EPIcr (2020) equation refit without race. The equation is recommended by the National Kidney Foundation - [place] Society of Nephrology Task Force. Blood VENOUS BLOOD / Unknown Venipuncture / Unknown 05/01/2025 1:31 PM EDT 05/01/2025 1:31 PM EDT Edwardo Urbano APRN CHEMISTRY ORDERABL ES Final Result Performing Organization Address [facility] Co de Phone Number [facility] [address] [facility], [place] [address] * GMED EGD-COLONOSCOPY (02/23/2017 11:00 AM EDT) 02/23/2017 11:0 0 AM EDT Impressions [facility] - 02/23/2017 10:05 AM EDT Plan: Await pathology results. Avoid eating 3 hrs prior to sleep Protonix 40mg PO daily Ok to resume Brilinta tomorrow Colonoscopy in 5 years due to fair prep. Follow-up with referring provider / physician This section is an excerpt of the full report. Bhavesh Naylor MD GI PROCEDURE ORDERABLES Frandy david Result - Final Performing Organization Address City/[facility]/ZIP [place] [address] from Last 3 Months or Most Recently Relevant to Health Maintenance Insurance MEDICARE [place] PART A AND B * Guarantor: Geovanny Marquez Account Type Relation to Patient Date of Phone Billing Address SEP Personal Family Account Self 1970 [phone] (Work) [address] [place] [address] * Guarantor: Geovanny Marquez Account Type Relation to Patient Date of Phone Billing Address [place] Personal/Family Self 1970 [phone] (Work) [address] [place] [address] Advance Directives For more information, please contact: [phone] * Full Code (Latest Code Status on File) Date Activated Date Inactivated Comments 10/26/2021 11:48 AM 10/26/2021 4:56 PM * Full Code Date Activated Date Inactivated Comments 09/11/2018 1:09 PM 09/17/2018 5:04 PM * Full Code Date Activated Date Inactivated Comments 09/09/2018 1:18 PM 09/09/2018 3:12 PM * Full Code Date Activated Date Inactivated Comments 09/07/2018 5:07 PM 09/09/2018 1:10 PM * Full Code Date Activated Date Inactivated Comments 05/23/2016 10:42 AM 05/23/2016 4:40 PM
--- OUTSIDE RECORDS SUMMARY | 2025-06-24 11:54 | XMS_ITS | Encounter Summary ---
Author Organization [place] [address] Care Team Providers Care Gastroenterology Physician Name Role Phone Unavailable Primary Care Provider Unavailabl e Encounter Details Date Type Department Care Team (Late st Contact Info) Description 05/01/2025 Results Follow-Up [facility] Diabetes [place] [address] [facility] [address] [place] [phone] Edwardo Urbano, GUANACO [address] [place] [address] [place] [address] MICROALBUMIN/CREATIN INE RATIO URINE, THYROID STIMULATING HORMONE, VITAMIN D 25 HYDROXY, Additional followed-up results: 3 Social History Tobacco Use Types Packs/Day Years [...] Date Recorded PHQ-2 Total Score 0 03/07/2021 [facility] [place] of Occupat ional Health - Occupational Stress [...] 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
--- OUTSIDE RECORDS SUMMARY | 2025-06-24 11:54 | XMS_ITS | Encounter Summary ---
[facility] Address [address] [place] [address] Care Team Providers Care Superintendent Car Construction Name Role Phone Provider, No Known Primary Care Provider Unavail able Encounter Details Date Type Department Care Team (Latest Contact Info) Description 05/23/2025 Travel Social History Tobacco Use Types Packs/Day Years [...] on filedocumented in this encounter Care Teams Superintendent Car Construction Relationship Specialty Start Date End Date Provider, No Known [facility] [place] [address] PCP - General 05/23/25 documented as of this encounter
--- OUTSIDE RECORDS SUMMARY | 2025-06-24 11:54 | XMS_ITS | Encounter Summary ---
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 100 Each 1 05/07/2025 documented in this encounter Plan of Treatment Upcoming Encounters Date Type Department Care Team (Late st Contact Info) Description 10/30/2025 12:40 PM EST Office Visit [address] [address] Edwardo Urbano APRN [address] [place] [address] [place] [address] 10/30/2025 1:30 PM EST Office Visit [facility] [place] [address] [place] [phone] Rayne Trimble APRN [address] [place] [phone] documented as of this encounter Goals Goal [...] General On track(2021 4:13 PM EST) No Russell, Luara J, RN Patient will be able to afford [...] 6(05/01/2025 1:31 PM EDT) No Trudy Lewis [facility] documented as of this encounter Visit Diagnoses Diagnosis Type 2 diabetes mellitus without complication, without long-term current use of insulin (HCC) documented in this encounter Discontinued Medications Medication Sig Discontinue Reason Start Date End Da te Insulin Marianna, Disposable, (CACHORRO PEN NEEDLE) 32 gauge x 5/32 Misc NeedleIndications:Typ e 2 diabetes mellitus without complication, without long-term current use of insulin (HCC) Subcutaneous (Inject under the skin) 1 Device once a week. Reorder 10/07/2018 05/06/2025 documented as of this encounter
--- OUTSIDE RECORDS SUMMARY | 2025-06-24 11:54 | XMS_ITS | Encounter Summary ---
Author Organization [place] [address] Care Team Providers Care Physician [facility] Name Role Phone Unavailable Primary Care Provider Unavailabl e Reason for Visit * Reason Onset Date Comments Paperwork/forms 05/28/2025 [employer] System, Encounter Details Date Type Department Care Team (Late st Contact Info) Description 05/28/2025 Telephone [facility] [place] [address] [address] [facility] [address] [place] [phone] Edwardo Urbano, GUANACO [address] [facility] [place] [address] Paperwork/forms ([employer] 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 Completed order for Dexcom G7 System, supplies through [employer] using [employer] documented in this encounter Plan of Treatment Upcoming Encounters Date Type Department Care Team (Late st Contact Info) Description 10/30/2025 12:40 PM EST Office Visit [facility] Diabetes [place] [address] [facility] [address] [place] [phone] Ewdardo Urbano APRN [address] [facility] [place] [address] 10/30/2025 1:30 PM EST Office Visit [facility] [place] [address] [place] [phone] Rayne Trimble APRN 1 [place] [address] documented as of this encounter Goals Goal [...] Medicaid. Stay Tobacco Free Lifestyle No Pao Dailge APRN Check fasting glucose daily and document Lifestyle On track(2020 10:43 AM EDT) No Tawanna Arroyo RN HEMOGLOBIN A1C < 7.0 Result Component 6(05/01/2025 1:31 PM EDT) No Trudy Lewis RMA documented as of this encounter Visit Diagnoses Not on filedocumented in this encounter
--- OUTSIDE RECORDS SUMMARY | 2025-06-24 11:54 | XMS_ITS | Clinical Summary ---
Author Organization [facility] Address [address] [place] [address] Care Team Providers Care Director Of Consumer Affairs Name Role Phone Provider, No Known Primary Care Provider Unavail able Encounters Date Type Department Care Team Description 05/23/2025 8:45 AM EDT Flu Shot [facility] [address] [phone] Need for influenza vaccination 05/23/2025 Travel from Last 3 Months Immunizations Immunization Administration Dates Next Due 31-influenza Vac Quardvalent Preservativ 05/12/2016 COVID-19 (PFIZER) Purple Cap Monovalent 01/21/2021,12/24/2020 Fluzone >6mos 05/23/2025 Fluzone (or Fluarix & Flulav al for VFC) >6mos 07/19/2022,07/26/2021,05/20/2018,2016 Influenza, Unspecified 05/28/2019 Tdap 07/24/2023,04/23/2022,12/18/2012 Social History Tobacco Use Types Packs/Day Years [...] on file Sexual Orientation Not on file Plan of Treatment Health Maintenance Due Date Last Done Comments DIABETIC EYE EXAM 1978 DIABETIC FOOT EXAM 1978 Hepatitis B (1 of 3 - 19+ 3- dose series) 1987 Pneumococcal Vaccine 50+ (1 of 2 - PCV) 1987 COLOGUARD 2013 COLON CANCER SCREENING 5 YEA R SIGMOIDOSCOPY 2013 CT COLONOGRAPHY 2013 FECAL OCCULT BLOOD TEST 2013 FIT Testing (1 year) 2013 ZOSTER VACCINE (1 of 2) 2018 ANNUAL WELLNESS VISIT 05/23/2025 HEMOGLOBIN A1C 10/29/2025 05/01/2025, 02/0 12/2024, 10/11/2023, Additional history exists URINE MICROALBUMIN-CREATININ E RATIO (uACR) 05/01/2026 05/01/2025, 10/11/2023, 12/11/2022, Additional history exists COLONOSCOPY 02/23/2027 02/23/2017 COLORECTAL CANCER SCREENING 02/23/2027 TDAP/TD VACCINES (4 - Td or Tdap) 07/24/2033 07/24/2023, 04/23/2022, 12/18/2012 HEPATITIS C SCREENING Completed 10/01/2019 INFLUENZA VACCINE Completed 05/23/2025, , 07/26/2021, Additional history exists Insurance UHC MEDICARE ADVANTAGE [facility] HMO NON PAR Care Teams Director Of Consumer Affairs Relationship Specialty Start Date End Date Provider, [place] [address] PCP - General 05/23/25
--- OUTSIDE RECORDS SUMMARY | 2025-06-24 11:54 | XMS_ITS | Encounter Summary ---
Author Organization [place] [address] Care Team Providers Care Picking Crew Supervisor Name Role Phone Shena Lorenz MD Primary Care Provider Unav Malena Pineda NAILER HAND Unavailable Unavailable Laurie Quiroz NAILER HAND Unavailable Estephania Tawanna Croft RN Unavailable Unavailable Boris Will MD Primary Care Provider Laura Hart RN Unavailable Unavailable Artem Hi MD Primary Care Provider [phone] Encounter Details Date Type Department Care Team (Late st Contact Info) Description 01/31/2010 Orders Only [facility] [place] [address] [place] [address] Cash Avila MD Social History Tobacco Use Types Packs/Day Years Used Date Smoking Tobacco: Never Assessed Sex and Gender Information Value Date Recorded Sex Assigned at Male 05/06/2025 12:05 AM EDT Legal Sex Male 10:42 PM EDT Gender Identity Not on file Sexual Orientation Not on file documented as of this encounter Plan of Treatment Upcoming Encounters Date Type Department Care Team (Late st Contact Info) Description 10/30/2025 12:40 PM EST Office Visit [place] [address] [address] [facility] [address] [place] [phone] Yolie Bertogary Moreira, SENIOR MICROSTRATEGY DEVELOPER [address] [place] [address] 10/30/2025 1:30 PM EST Office Visit [facility] [place] [address] [place] [address] Rayne Trimble, SENIOR MICROSTRATEGY DEVELOPER 1 [place] [address] documented as of this encounter Procedures Procedure Name Priority Date/Time Associated Diagnosis Comments ECHO - HISTORICAL Routine 01/31/2010 12: 00 AM EDT documented in this encounter Results * ECHO - HISTORICAL (01/31/2010 12:00 AM EDT) Anatomical Region Laterality Modality Other 01/31/2010 Narrative 08/29/2011 3:30 AM EST NOTICE: This report was electronically copied on 10/12/2011 from historical data generated by a practice prior to that practice using [facility] for Medical Records. Performing Provider: Cash Avila M.D. Cash Avila MD IMG ECHO ORDERABLES Final Re sult documented in this encounter Visit Diagnoses Not on filedocumented in this encounter Care Teams Picking Crew Supervisor Relationship Specialty Start Date End Date Shena Lorenz MD PCP - General 09/23/09 05/17/21 Boris Will MD PCP - General Family Medicine 05/18/21 03/12/22 Artem Hi MD [address] [place], [place] [phone] PCP - General Internal Medicine 03/13/22 12/12/23 Malena Solano LPN [facility] Licensed Practical Nurse 05/08/16 1 Laurie Quiroz LPN [facility] Licensed Practical Nurse 09/23/18 12/31/18 Tawanna Arroyo, RN Medical Assistant Supervisor 03/07/21 03/10/21 Laura Wells, RN Medical Assistant Supervisor Registered Nurse 08/02/21 04/05/22 documented as of this encounter
--- OUTSIDE RECORDS SUMMARY | 2025-06-24 11:54 | XMS_ITS | Encounter Summary ---
Author Organization [place] [address] Care Team Providers Care Oil Field Laborer Name Role Phone Unavailable Primary Care Provider Unavailabl e Reason for Visit * Reason Onset Date Comments Labs Only 05/01/2025 Encounter Details Date Type Department Care Team (Late st Contact Info) Description 05/01/2025 Telephone [facility] Diabetes [address] [address] Edwardo Urbano, GUANACO [address] [place] [address] Labs Only Social History Tobacco Use Types Packs/Day Years [...] Date Recorded PHQ-2 Total Score 0 03/07/2021 [facility] [place] of Occupat ional Health - Occupational Stress [...] 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 Lab orders updated. documented in this encounter Plan of Treatment Upcoming Encounters Date Type Department Care Team (Late st Contact Info) Description 10/30/2025 12:40 PM EST Office Visit [facility] [place] [address] [facility] [address] [place], [place] [phone] Edwardo Urbano APRN [address] [place] [address] [place] [address] 10/30/2025 1:30 PM EST Office [place] [address] Rayne Trimble APRN 1 [place] [address] documented as of this encounter Goals Goal [...] Lewis RMA documented as of this encounter Results * (ABNORMAL) HEMOGLOBIN A1C (05/01/2025 1:31 PM EDT) Hgb A1C 6.0(H) 4.2 - 5.6 % 05/01/2025 2:01 PM EDT [facility] Est. Avg Glucose 126 mg/dL 05/01/2025 2:01 PM EDT [facility] Blood VENOUS BLOOD / Unknown Venipuncture / Unknown 05/01/2025 1:31 PM EDT 05/01/2025 1:31 PM EDT Narrative [facility] - 05/01/2025 2:01 PM EDT REFERENCE RANGE: Normal: 4.0-5.6% Pre-diabetes: 5.7-6.4% Provisional diagnosis of diabetes: >6.4% Hgb F>10% and anything which shortens red cell survival, such as hemolytic anemia, or unstable hemoglobin variants such as HbSS, HbSC, or HbCC, will lower the HbA1c value associated with a given level of glycemic control. Edwardo Urbano APRN CHEMISTRY ORDERABL ES Final Result [facility] [address] [place] [address] , [place] [address] * (ABNORMAL) COMPREHENSIVE METABOLIC PANEL [...] 3:36 PM EDT [facility] ALT 19 <=41 U/L 05/01/2025 3:36 PM EDT [facility] AST 16 <=40 U/L 05/01/2025 3:36 PM EDT [facility] Alk Phos 167(H) 40 - 129 U/L 05/01/2025 3:36 PM EDT [facility] eGFR (CKD-EPIcr 2020) 110 >=60 mL/min/1.7 3 m2 05/01/2025 3:36 PM EDT [facility] Comment:Estimated GFR was ca lculated using the CKD-EPIcr (2020) equation refit without race. The equation is recommended by the National Kidney Foundation - [place] Society of Nephrology Task Force. Blood VENOUS BLOOD / Unknown Venipuncture / Unknown 05/01/2025 1:31 PM EDT 05/01/2025 1:31 PM EDT [facility] Moreira Yolie MANAGER CORPORATE CHEMISTRY ORDERABL ES Final Result [facility] [address] [facility] , [place] [address] * LIPID PANEL REFLEX (05/01/2025 1:31 PM EDT) Cholesterol 113 <200 mg/dL 05/01/2025 3:36 PM EDT [facility] Comment: < 200 Desirable 200 - 239 Borderline High >= 240 High Triglyceride 67 <150 mg/dL 05/01/2025 3:36 PM EDT [facility] Comment: < 150 Normal 150 - 199 Borderline High 200 - 499 High >= 500 Very High HDL 59 >=40 mg/dL 05/01/2025 3:36 PM EDT [facility] Comment: > 60 Optimal 40 - 60 Acceptable < 40 Low LDL Calculated 40 <100 mg/dL 05/01/2025 3:36 PM EDT [facility] Comment: < 100 Optimal 100 - 129 Near or above optimal 130 - 159 Borderline High 160 - 189 High >= 190 Very High The National Institutes of Health (NIH) equation is used for all lipid panels that report calculated LDL (LDL-C). Non-HDL-C Calculated 54 <=129 mg/dL 05/01/2025 3:36 PM EDT [facility] Comment: <130 Desirable 130-159 Above Desirable 160-189 Borderline High 190-219 High >= 220 Very High Fasting Specimen? Yes None 025 3:36 PM EDT [facility] Blood VENOUS BLOOD / Unknown Venipuncture / Unknown 05/01/2025 1:31 PM EDT 05/01/2025 1:31 PM EDT Edwardo Urbano APRN CHEMISTRY ORDERABL ES Final Result Performing Organization Address City/[facility] de Phone Number [facility] [address] [facility] , [address] [place], [place] [id number] * VITAMIN D 25 HYDROXY (05/01/2025 1:31 PM EDT) Vit D 25 OH 36.9 30.0 - 150.0 ng/mL 05/01/2025 3:45 PM EDT [facility] Comment: Preferred: >= 30 ng/mL Insufficient: 21-29 [...] ORDERABL ES Final Result Performing Organization Address [facility] de Phone Number [facility] [address] [facility] , [place] [address] * THYROID STIMULATING HORMONE (05/01/2025 1:31 PM EDT) Pathologist [facility] TSH 1.660 0.270 - 4.200 mcIU/mL 05/01/2025 3:36 PM EDT [facility] Blood VENOUS BLOOD / Unknown Venipuncture / Unknown 05/01/2025 1:31 PM EDT 05/01/2025 1:31 PM EDT Narrative [facility] - 05/01/2025 3:36 PM EDT Ingestion of sanjeev doses of biotin (>5 mg/day) taken within 8 hours of drawing blood sample can interfere with this immunoassay test. Edwardo Urbano APRN CHEMISTRY ORDERABL ES Final Result [facility] [address] [facility] , [place] [address] documented in this encounter Visit Diagnoses Diagnosis Type 2 diabetes mellitus with hyperlipidemia (HCC)- Primary Vitamin D deficiency Unspecified vitamin D deficiency documented in this encounter Orders Lab Orders Without Results Count Last Ordered D ate First Ordered Date MICROALBUMIN/CREATININE RATIO URINE 1 05/01 documented in this encounter
--- OUTSIDE RECORDS SUMMARY | 2025-06-24 11:54 | XMS_ITS | Encounter Summary ---
Author Organization [place] [address] Care Team Providers Care Bariatric Physician Name Role Phone Shena Lorenz MD Primary Care Provider Unav Laurie Sol LPN Unavailable Estephania Tawanna Croft RN Unavailable Unavailable Boris Will MD Primary Care Provider Laura Hart RN Unavailable Unavailable Artem Hi MD Primary Care Provider [phone] Encounter Details Date Type Department Care Team (Late st Contact Info) Description 02/23/2017 Orders Only [facility] [address] [facility] [address] [place] [address] Bhvaesh Naylor MD [address] [place] [address] Social History Tobacco Use Types Packs/Day Years Used Date Smoking Tobacco: Former Cigarettes 1 28.2 0 08/27/1982 - 11/26/2010 Smokeless Tobacco: Never Alcohol Use Standard Drinks/Week Comments No 0 (1 standard drink = 0.6 oz pur e alcohol) denies Sex and Gender Information Value Date Recorded Sex Assigned at Male 05/06/2025 12:05 AM EDT Legal Sex Male 10:42 PM EDT Gender Identity Not on file Sexual Orientation Not on file 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 Answer Date of Assessment Author No 05/23/2016 11:38 AM Valerie Kay RN * Is the person blind or does he/she have serious difficulty seeing even when wearing glasses? Answer Date of Assessment Author No 05/23/2016 11:38 AM Valerie Kay RN * Does this person have serious difficulty walking or climbing stairs? Answer Date of Assessment Author No 05/23/2016 11:38 AM Valerie Kay RN * Does this person have difficulty dressing or bathing? Answer Date of Assessment Author No 05/23/2016 11:38 AM Valerie Kay RN * Because of a physical, mental or emotional condition, does this person have difficulty doing errands alone such as visiting a doctor's office or shopping? Answer Date of Assessment Author No 05/23/2016 11:38 AM Valerie Kay RN documented as of this encounter Mental Status * Because of a physical, mental or emotional condition, does this person have serious difficulty concentrating, remembering or making decisions? Answer Entry Date Author No 05/23/2016 11:38 AM Valerie Kay RN documented in this encounter Plan of Treatment Upcoming Encounters Date Type Department Care Team (Late st Contact Info) Description 10/30/2025 12:40 PM EST Office Visit [facility] [address] [facility] [address] [place] [phone] Edwardo Urbano, NOZZLEMAN [address] [place] [address] 10/30/2025 1:30 PM EST Office Visit [facility] [place] [id number] [place] [address] Rayne Trimble APRN [address] [id number] documented as of this encounter Goals Goal Patient Goal Type Associated Problems Recent Progress Patient-Stated? Author Blood Pressure < 140/90 Blood Pressure 106/56(2024 1:00 PM EDT) No Trudy Lewis RMA BMI (Calculated) < 30 General 37.6(05/07/20 1:00 PM EDT) No Trudy Lewis RMA Eat better, exercise, reach an ideal body weight General No Pao Daigle APRN Stay Tobacco Free Lifestyle No Pao Daigle APRN HEMOGLOBIN A1C < 7.0 Result Component 6(05/01/2025 1:31 PM EDT) No Trudy Lewis RMA documented as of this encounter Procedures Procedure Name Priority Date/Time Associated Diagnosis Comments [facility] EGD-COLONOSCOPY Routine 02/23/2017 11:00 AM EDT documented in this encounter Results * [facility] EGD-COLONOSCOPY (02/23/2017 11:00 AM EDT) 02/23/2017 11:0 0 AM EDT Impressions [facility] - 02/23/2017 10:05 AM EDT Plan: Await pathology results. Avoid eating 3 hrs prior to sleep Protonix 40mg PO daily Ok to resume Brilinta tomorrow Colonoscopy in 5 years due to fair prep. Follow-up with referring provider / physician This section is an excerpt of the full report. Bhavesh Naylor MD GI PROCEDURE ORDERABLES Frandy david Result - Final [facility] [address] [place] [address] documented in this encounter Visit Diagnoses Not on filedocumented in this encounter Care Teams Bariatric Physician Relationship Specialty Start Date End Date Shena Lorenz MD PCP - General 09/23/09 05/17/21 Boris Will MD PCP - General Family Medicine 05/18/21 03/12/22 Artem Hi MD [address] [place] [address] PCP - General Internal Medicine 03/13/22 12/12/23 Laurie Quiroz LPN [facility] Licensed Practical Nurse 09/23/18 12/31/18 Tawanna Arroyo, RN Supervisory Historian 03/07/21 03/10/21 Laura Wells, RN Supervisory Historian Registered Nurse 08/02/21 04/05/22 documented as of this encounter
--- OUTSIDE RECORDS SUMMARY | 2025-06-24 11:54 | XMS_ITS | Encounter Summary ---
Author Organization [place] [address] Care Team Providers Care Animal Rides Manager Name Role Phone Unavailable Primary Care Provider Unavailabl e Reason for Visit * Reason Onset Date Comments Paperwork/forms 05/19/2025 [employer] Encounter Details Date Type Department Care Team (Late st Contact Info) Description 05/19/2025 Telephone [facility] Phys[facility] [address] [facility] [address] [place] [phone] Edwardo Urbano, GUANACO [address] [place] [address] Paperwork/forms ([employer]) Social History Tobacco Use Types Packs/Day Years [...] Date Recorded PHQ-2 Total Score 0 03/07/2021 [employer] [place] [facility] - Occupational Stress [...] 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 Completed order for Dexcom G7 System, supplies through [place] using [employer] company * Telephone Encounter - Elena Rosado - 05/19/2025 11:56 AM EDT Pt called in to see when Susi will be shipped- I sent a message in [place] to [employer] and made pt aware he should call them also documented in this encounter Plan of Treatment Upcoming Encounters Date Type Department Care Team (Late st Contact Info) Description 10/30/2025 12:40 PM EST Office Visit [facility] [place] [address] [facility] [address] [place] [address] Edwardo Urbano, GUANACO [address] [place] [address] 10/30/2025 1:30 PM EST Office Visit [facility] [place] [address] [phone] Rayne Trimble APRN [address] [place] [address] documented as of this encounter Goals Goal Patient Goal Type Associated Problems Recent Progress Patient-Stated? Author Blood Pressure < 140/90 Blood Pressure 106/56(05/07 1:00 PM EDT) No Trudy Lewis RMA BMI (Calculated) < 30 General 37.6( 1:00 PM EDT) No Trudy Lewis RMA [...]
--- OUTSIDE RECORDS SUMMARY | 2025-06-24 11:54 | XMS_ITS | Encounter Summary ---
Author Organization [place] [address] Care Team Providers Care Injection Molding Machine Offbearer Name Role Phone Unavailable Primary Care Provider Unavailabl e Reason for Visit * Reason Onset Date Comments Medication Refill 05/28/2025 Encounter Details Date Type Department Care Team (Late st Contact Info) Description 05/28/2025 Telephone [facility] [address] [facility] [address] [place] [phone] Edwardo Urbano, GUANACO [address] [facility] [place] [address] Medication Refill Social [...] Date Recorded PHQ-2 Total Score 0 03/07/2021 [facility] [place] [facility] Occupat ional Health - Occupational Stress [...] 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 Pt Name of medication: Dexcom G7 sensor's 30 or 90 day supply? 90 Pharmacy and Location [facility] How many days of medication left on hand? 0 Future Appointment: Patient has appointment with Edwardo Urbano on 10/30/25 . Route to [place]. Additional Notes : Pt states that he is no longer using solara and he will need to have a new script sent for sensor's. Pt states that he contacted [facility] and they informed him that Edwardo Urbano will need to send script documented in this encounter Plan of Treatment Upcoming Encounters Date Type Department Care Team (Late st Contact Info) Description 10/30/2025 12:40 PM EST [facility] [address] [facility] [address] [place] [phone] Edwardo Urbano APRN [address] [place], [place] [phone] 10/30/2025 1:30 PM EST Office Visit [facility] [address] [place] [address] Rayne Trimble APRN [address] [id number] documented as of this encounter Goals Goal [...]
--- OUTSIDE RECORDS SUMMARY | 2025-06-24 11:54 | XMS_ITS ---
Author Organization Unknown TREATMENT PLAN Planned Care Start Date Provider Encounter for Check-up [phone] [facility]
== END 2025-06-23 23:59 ==
LOC: LAB.DROPOF 06-24 11:52
PROVIDERS: PCP Family Medicine; Visit Provider Family Medicine
DX: E11.9 Type 2 diabetes mellitus without complications (principal); Z12.5 Encounter for screening for malignant neoplasm of prostate
CPT/HCPCS: 80053; 80061; 82043; 82570; 83036; 84443; 85025; G0103